=== PATIENT | female | born 1945 | race Caucasian/White ===

== ENCOUNTER 2018-06-19 09:23 | Emergency (ER) | payer MEDICARE, BC ==
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
[2018-06-19 09:53] LABS: ABS Basophils 0.1 10^3/ul (0-0.2); ABS Eosinophils 0.1 10^3/ul (0-0.6); ABS Lymphocytes 0.9 10^3/ul (1.0-4.8); ABS Monocytes 0.4 10^3/ul (0-0.8); ABS Neutrophils 3.5 10^3/ul (1.5-7.7); ABS Nucleated RBC 0 10^3/ul; Eosinophil % 1.2 %; Hematocrit 41 % (35-47); Hemoglobin 13.5 g/dl (12.0-16.0); Lymphocyte % 18.7 %; Mean Corpuscular HGB Conc 33 g/dl (31-36); Mean Corpuscular Hemoglobin 30 pg (27-31); Mean Corpuscular Volume 91 fL (80-97); Mean Platelet Volume 7.7 fL (7.4-10.4); Nucleated Red Blood Cells % 0; Platelet Count 234 10^3/ul (150-450); Red Blood Count 4.54 10^6/ul (4.00-5.40); Red Cell Distribution Width 14 % (10.5-15); White Blood Count 4.9 10^3/ul (3.5-10.8)
[2018-06-19 10:11] LABS: EGFR Non-African American 68.1 (>60)
[2018-06-19] MEDS ORDERED: Amoxicillin/Clavulanate TAB* 500 MG PO ONE (10:52)
[2018-06-19 11:36] LABS: Urine Appearance Cloudy; Urine Blood 1+ (Negative); Urine Color Yellow; Urine Ketones Negative (Negative); Urine Protein Negative (Negative); Urine Red Blood Cell Absent (Absent); Urine Specific Gravity 1.013 (1.010-1.030); Urine Urobilinogen Negative (Negative); Urine White Blood Cell Absent (Absent)
[2018-06-19 12:22] VITALS: BP 159/69
== END 2018-06-19 12:20 | disposition home or self-care (01) ==
LOC: ED 09:23
DX: S02.2XXA Fracture of nasal bones, initial encounter for closed fracture (principal); S00.93XA Contusion of unspecified part of head, initial encounter; W01.0XXA Fall on same level from slipping, tripping and stumbling without subsequent striking against object, initial encounter; M50.321 Other cervical disc degeneration at C4-C5 level; M50.322 Other cervical disc degeneration at C5-C6 level; M50.323 Other cervical disc degeneration at C6-C7 level; I25.10 Atherosclerotic heart disease of native coronary artery without angina pectoris; I10 Essential (primary) hypertension; E78.00 Pure hypercholesterolemia, unspecified; Z88.0 Allergy status to penicillin
CPT/HCPCS: 36415; 70450; 70486; 72125; 80053; 81003; 81015; 85025; 87086; 99284; A9270-GY

== ENCOUNTER 2018-11-19 08:25 | Day surgery (SDC) | payer MEDICARE, BC ==
[~2018-11-19 08:25] MED LIST: Acetaminophen TAB* 325 MG PO PRN; Buffered Lidocaine 1% SYRIN* 1 ML/SYRINGE INTRADERM ONE
[2018-11-19] MEDS ORDERED: Lidocaine 2% PF * 5 ML VIAL ONE (10:10)
[2018-11-19] MEDS ORDERED: Propofol* 10 MG/ML 20 ML BTL ONE (10:10)
[2018-11-19 10:26] VITALS: BP 134/56
--- NOTE | 2018-11-19 13:10 | OP ---
DATE OF OPERATION/DATE OF DICTATION: 11/19/2018 - [facility] DATE OF : 1945. SURGEON: Dr. Trevin Doss. PHARMACY BUYER: None. ANESTHESIA: Topical with intravenous sedation. PRE-OP DIAGNOSIS: Cataract, right eye. POST-OP DIAGNOSIS: Cataract, right eye. OPERATIVE PROCEDURE: Phacoemulsification and cataract extraction with posterior chamber intraocular lens implant, right eye. COMPLICATIONS: None. BLOOD LOSS: None. DESCRIPTION OF PROCEDURE: The patient was brought to the operating room and received a small amount of intravenous sedation. A drop of Tetracaine was placed in her right eye. She was prepped and draped in the usual sterile fashion for ophthalmic surgery and attention was directed to the right eye where a speculum was placed. A paracentesis was created at the 11 o'clock position and 0.1 cc of 1 percent preservative-free Lidocaine was injected into the anterior chamber followed by DisCoVisc. The eye was digitally stabilized while a 2.75 mm keratome was used to create a triplanar clear corneal incision at the 9 o'clock position. A continuous curvilinear capsulorrhexis was created with a cystotome and Utrata forceps. BSS on a cannula was used to hydrodissect the lens from the capsule. Phacoemulsification was performed in a divide-and- conquer technique to create four fragments which were removed. Residual cortical material was removed with irrigation and aspiration. DisCoVisc was used to inflate the capsular bag and an AUOOTO 27.0 diopter lens was folded and inserted into the capsular bag. DisCoVisc was removed using irrigation and aspiration. BSS on a cannula was used to hydrate the corneal stroma and seal the wound. At the end of the case the pupil was round and the lens was centered. The eye was of normal pressure and the wound was water tight. The speculum was removed and topical Maxitrol ointment was placed on the surface of the eye. The eye was closed, patched and shielded and the patient was sent to the recovery room in stable condition with post operative instructions and follow-up appointment given. [id number]/[facility] #: [id number] MTDD
[2018-11-19] MEDS ORDERED: Triamcinolone Acetonide* 40 MG/ML 1 ML VIAL ONE (13:59)
[2018-11-19] MEDS ORDERED: Atropine 1% OPHTH.SOL* 1 DROP BTL 2-5 ML ONE (13:59)
[2018-11-19] MEDS ORDERED: Acetylcholine 1:100 OPTH* OPHTH.SOLN ONE (13:59)
[2018-11-19] MEDS ORDERED: Bupivacaine 0.25% SDV PF* 10 ML VIAL INJ ONE (13:59)
[2018-11-19] MEDS ORDERED: Cyclopentolate 1% OPTH.SOL* 2 ML BTL ONE (14:00)
[2018-11-19] MEDS ORDERED: Phenylephrine OPHTH SOL 2.5%* 2 ML ONE (14:00)
[2018-11-19] MEDS ORDERED: Lidocaine 1%* 5 ML VIAL ONE (14:00)
[2018-11-19] MEDS ORDERED: Ketorolac 0.5% OPHTH (NF) 0.5 % 5 ML BTL ONE (14:00)
[2018-11-19] MEDS ORDERED: Tetracaine 0.5% OPTH.SOL 4 ML* 1 DROP BTL ONE (14:00)
[2018-11-19] MEDS ORDERED: Neomycin/Polymy/Dex OPHTH.OIN* 3.5 GM ONE (14:00)
[2018-11-19] MEDS ORDERED: Tropicamide 1% OPTH.SOL* BTL ONE (14:00)
== END 2018-11-19 10:33 | disposition home or self-care (01) ==
LOC: OREAST 08:25
PROVIDERS: ATTEND Ophthalmology
DX: H25.11 Age-related nuclear cataract, right eye (principal); I10 Essential (primary) hypertension; K21.9 Gastro-esophageal reflux disease without esophagitis; E78.00 Pure hypercholesterolemia, unspecified; M19.90 Unspecified osteoarthritis, unspecified site; G47.33 Obstructive sleep apnea (adult) (pediatric); G20 Parkinson's disease
CPT/HCPCS: A9270-GY; J2704; J3301; J3490; V2632

== ENCOUNTER 2018-11-26 07:50 | Day surgery (SDC) | payer MEDICARE, BC ==
[2018-11-26] MEDS ORDERED: Ketorolac 0.5% OPHTH (NF) 0.5 % 5 ML BTL ONE (08:01)
[2018-11-26] MEDS ORDERED: Phenylephrine OPHTH SOL 2.5%* 2 ML ONE (08:01)
[2018-11-26] MEDS ORDERED: Lidocaine 1%* 5 ML VIAL ONE (08:01)
[2018-11-26] MEDS ORDERED: Cyclopentolate 1% OPTH.SOL* 2 ML BTL ONE (08:01)
[2018-11-26] MEDS ORDERED: Tropicamide 1% OPTH.SOL* BTL ONE (08:01)
[2018-11-26] MEDS ORDERED: Tetracaine 0.5% OPTH.SOL 4 ML* 1 DROP BTL ONE (08:01)
[2018-11-26] MEDS ORDERED: Neomycin/Polymy/Dex OPHTH.OIN* 3.5 GM ONE (08:01)
[2018-11-26] MEDS ORDERED: Phenylephr/Ketorolac 1%/0.3% OPH DROP BTL ONE (08:03)
[2018-11-26] MEDS ORDERED: fentaNYL* 50 MCG/ML 2 ML VIAL (100 MCG VIAL) ONE (08:50)
[2018-11-26] MEDS ORDERED: Midazolam* 1 MG/ML 2 ML VIAL (2 MG) ONE (08:50)
[2018-11-26 09:45] VITALS: BP 119/52
--- NOTE | 2018-11-26 10:56 | OP ---
DATE OF OPERATION/DATE OF DICTATION: 11/26/2018 - [facility] DATE OF : 1945. SURGEON: Dr. Trevin Doss. LIVING SUPERVISOR: None. ANESTHESIA: Topical with intravenous sedation. PRE-OP DIAGNOSIS: Cataract, left eye. POST-OP DIAGNOSIS: Cataract, left eye. OPERATIVE PROCEDURE: Phacoemulsification and cataract extraction with posterior chamber intraocular lens implant, left eye. COMPLICATIONS: None. BLOOD LOSS: None. DESCRIPTION OF PROCEDURE: The patient was brought to the operating room and received a small amount of intravenous sedation. A drop of Tetracaine was placed in his left eye. He was prepped and draped in the usual sterile fashion for ophthalmic surgery and attention was directed to the left eye where a speculum was placed. A paracentesis was created at the 5 o'clock position and 0.1 cc of 1 percent preservative-free Lidocaine was injected into the anterior chamber followed by DisCoVisc. The eye was digitally stabilized while a 2.75 mm keratome was used to create a triplanar clear corneal incision at the 3 o' clock position. A continuous curvilinear capsulorrhexis was created with a cystotome and Utrata forceps. BSS on a cannula was used to hydrodissect the lens from the capsule. Phacoemulsification was performed in a divide-and- conquer technique to create four fragments which were removed. Residual cortical material was removed with irrigation and aspiration. DisCoVisc was used to inflate the capsular bag and an AUOOTO 26.0 diopter lens was folded and inserted into the capsular bag. DisCoVisc was removed using irrigation and aspiration. BSS on a cannula was used to hydrate the corneal stroma and seal the wound. At the end of the case the pupil was round and the lens was centered. The eye was of normal pressure and the wound was water tight. The speculum was removed and topical Maxitrol ointment was placed on the surface of the eye. The eye was closed, patched and shielded and the patient was sent to the recovery room in stable condition with post operative instructions and follow-up appointment given. [id number]/[facility] #: [id number] MTDD
== END 2018-11-26 10:08 | disposition home or self-care (01) ==
LOC: OREAST 07:50
PROVIDERS: ATTEND Ophthalmology
DX: H25.12 Age-related nuclear cataract, left eye (principal); I10 Essential (primary) hypertension; K21.9 Gastro-esophageal reflux disease without esophagitis; M19.90 Unspecified osteoarthritis, unspecified site; E78.00 Pure hypercholesterolemia, unspecified; G47.33 Obstructive sleep apnea (adult) (pediatric); E78.5 Hyperlipidemia, unspecified
CPT/HCPCS: A9270-GY; C9447; J2250; J3010; V2632

== ENCOUNTER 2019-04-17 10:15 | Day surgery (SDC) | payer MEDICARE, BC ==
[~2019-04-17 10:15] MED LIST changes: -Acetaminophen TAB* 325 MG PO PRN; +Lactated Ringers 1000 ML Bag* 1,000 ML IV SCH
[2019-04-17] MEDS ORDERED: Propofol* 10 MG/ML 20 ML BTL ONE (10:20)
[2019-04-17] MEDS ORDERED: Lidocaine 2% PF * 5 ML VIAL ONE (10:25)
[2019-04-17] MEDS ORDERED: Ondansetron INJ* 2 MG/ML VIAL ONE (10:25)
[2019-04-17] MEDS ORDERED: Dexamethasone IV* 4 MG/ML 1 ML (4 MG) ONE (11:05)
[2019-04-17] MEDS ORDERED: Famotidine IV* 10 MG/ML 2 ML (20 mg) ONE ×2 (11:06)
[2019-04-17] MEDS ORDERED: Bupivacaine 0.25% SDV* 30 ML ONE (11:09)
[2019-04-17] MEDS ORDERED: Naloxone* 0.4 MG/ML 1 ML VIAL IV PRN (12:05)
[2019-04-17] MEDS ORDERED: Ibuprofen TAB* 600 MG ONE (12:48)
[2019-04-17 12:58] VITALS: BP 120/62
--- NOTE | 2019-04-17 15:32 | OP ---
DATE OF OPERATION: 04/17/19 [facility] DATE OF : [birth year] SURGEON: John Quiroz MD TAPE MAKER: AMANDA Reveles ANESTHESIOLOGIST: Dr. Cabral. ANESTHESIA: General. PRE-OP DIAGNOSIS: Right carpal tunnel syndrome. POST-OP DIAGNOSIS: Right carpal tunnel syndrome. OPERATIVE PROCEDURE: Right endoscopic carpal tunnel release. INDICATIONS: Solange has pretty severe carpal tunnel. I talked to her about her options. She wanted to proceed with carpal tunnel release. We will have to wait to see how much recovery she has, but I think she will get substantial benefit. She understands there is risk associated with it. ESTIMATED BLOOD LOSS: 2 mL. COMPLICATIONS: None. FINDINGS: See above and below. DESCRIPTION OF PROCEDURE: Ms. Avalos was seen in the preoperative holding area. The correct site, side, and procedures were identified. We came back to the operating room. The arm was prepped and draped in the usual fashion and a time-out was performed. The arm was exsanguinated with the Esmarch and the tourniquet was inflated to 225 mmHg. I made a 1 cm transverse incision just proximal to the wrist flexion crease. Dissection was carried down through the subcutaneous tissue and palmar fascia. The distal antebrachial fascia was split transversely bluntly with the tenotomy scissors. A 2-prong skin hook was placed under the fascia. I used a synovial stripper and the dilators and a Q-tip to dilate and draw out the carpal tunnel. I then introduced the MicroAire endoscopic carpal tunnel system into the carpal tunnel. Once I had it in the appropriate location, I elevated the blade and the release was carried out from distal to proximal. Once I had confirmed the release distally, I used the tenotomy scissors to release the distal antebrachial fascia proximal. At this point, everything was looking very good. There is no compression on the nerve. The wound was irrigated out. The skin was closed with a 4-0 Prolene suture and Steri-Strips. Marcaine was infiltrated. A soft dressing was applied and she was taken to the recovery room in stable condition. [id number]/[facility] #: [id number] MTDD
== END 2019-04-17 13:16 | disposition home or self-care (01) ==
LOC: OREAST 10:15
PROVIDERS: ATTEND Orthopaedic Surgery Hand Surgery
DX: G56.01 Carpal tunnel syndrome, right upper limb (principal); G47.33 Obstructive sleep apnea (adult) (pediatric); I10 Essential (primary) hypertension; E78.5 Hyperlipidemia, unspecified; K21.9 Gastro-esophageal reflux disease without esophagitis; M19.90 Unspecified osteoarthritis, unspecified site; G20 Parkinson's disease; Z68.33 Body mass index [BMI] 33.0-33.9, adult
CPT/HCPCS: A9270-GY; J1100; J2405; J2704; J3490

== ENCOUNTER 2019-06-10 14:04 | Emergency (ER) | payer MEDICARE, BC ==
--- NOTE | 2019-06-10 14:23 | ED ---
Dizziness - HPI Summary HPI Summary: The patient is a 73 y/o F arriving by ambulance to [facility] with a chief complaint of worsening recurrent episodes of dizziness for the last few months. She reports that she began having dizzy spells months ago with about 1-2 occurring a week, but now she is having more frequent and constant episodes. She describes the dizziness as a drunk feeling, rather than a room-spinning sensation. There are no aggravating or alleviating factors to her symptoms. She went to her neurologist today, who manages her Parkinsons, and they noticed that the slurred speech she has at baseline is more severe than usual, but the patient states that her speech is normal to her. She denies fever or chills. She is not in any pain now. She uses a scooter walker for ambulation. PMHx: CAD , HLD, HTN, Parkinsons disease. Nonsmoker, rare EtOH, no substance use. Medications reviewed. Allergies noted. - History Of Current Complaint Stated Complaint: DIZZINESS PER EMS Hx Obtained From: Patient Onset/Duration: Still Present Timing: Constant Severity Initially: Mild Severity Currently: Moderate Character: Dizzy - "drunk feeling" Aggravating Factor(s): Nothing Alleviating Factor(s): Nothing Associated Signs And Symptoms: Negative: Fever, Chills, Slurred Speech - has at baseline but subjectively not worse than usual - Allergies/Home Medications Allergies/Adverse Reactions: Allergies Allergy/AdvReac Type Severity Reaction Status Date / Time hydrocodone Allergy Severe Hallucinati Verified 06/10/19 14:22 ons Penicillins Allergy Severe Hives Verified 06/10/19 14:22 rofecoxib AdvReac Severe Coughing Verified 06/10/19 14:22 Adhesive Tape AdvReac Intermediate Rash And Verified 06/10/19 14:22 Itching MORPHINE Allergy Severe Vomiting Uncoded 06/10/19 14:22 Home Medications: Home Medications Acetaminophen TAB* [Tylenol TAB*] 650 mg PO Q4H PRN 06/10/19 [History Confirmed 06/10/19] C,E,Zinc,Copper 11/Vvzqx4i/Lut [Ocuvite Adult 50 Plus Softgel] 1 each PO DAILY 06/10/19 [History Confirmed 06/10/19] Calcium Citrate 200 mg PO DAILY 06/10/19 [History Confirmed 06/10/19] Losartan/Hydrochlorothiazide [Losartan Potassium/Hydroc 50-12.5 mg] 1 tab PO DAILY 06/10/19 [History Confirmed 06/10/19] Magnesium Hydroxide LIQ* [Milk of Magnesia LIQ*] 30 ml PO DAILY PRN 06/10/19 [ History Confirmed 06/10/19] Melatonin (NF) 1 tab PO BEDTIME PRN 06/10/19 [History Confirmed 06/10/19] Polyvinyl Alcohol [Akwa Tears] 1 drop BOTH EYES DAILY PRN 06/10/19 [History Confirmed 06/10/19] Solifenacin(NF) [Vesicare(NF)] 5 mg PO DAILY 06/10/19 [History Confirmed ] PMH/Surg Hx/FS Hx/Imm Hx Endocrine/Hematology History: Denies: Hx Diabetes Cardiovascular History: Reports: Hx Coronary Artery Disease, Hx Hypercholesterolemia, Hx Hypertension - ON MEDICATION FOR, Hx Valvular Heart Disease - hardnening of valve related to age Denies: Hx Pacemaker/ICD, Other Cardiovascular Problems/Disorders Respiratory History: Reports: Hx Pneumonia - aspiration pneumonia, Hx Sleep Apnea - DX 2007, Other Respiratory Problems/Disorders - aspiration pneumonia post op, resp failure-2005 Denies: Hx Asthma GI History: Reports: Hx Gall Bladder Disease - gall stones, Hx Gastroesophageal Reflux Disease - HX OF-REPORTS HAS STARTED A MEDICATION PRIOR TO PAST SURGERY, Hx Hiatal Hernia Denies: Other GI Disorders History: Denies: Hx Renal Disease, Other Problems/Disorders Musculoskeletal History: Reports: Hx Arthritis, Hx Bursitis - BILATERAL HIPS IN THE PAST Denies: Other Musculoskeletal History Sensory History: Reports: Hx Cataracts - BILATERAL, Hx Contacts or Glasses - GLASSES Denies: Hx Hearing Aid Opthamlomology History: Reports: Hx Cataracts - BILATERAL, Hx Contacts or Glasses - GLASSES Neurological History: Reports: Hx Nerve Disease - DX 2014-PARKINSONS Denies: Other Neuro Impairments/Disorders Psychiatric History: Reports: Hx Anxiety - AFTER SURGERY 2006-[facility]- TREATED WITH BEHAVORIAL MOD WITH COUNSLER Denies: Hx Panic Disorder - Cancer History Hx Chemotherapy: No - Surgical History Surgical History: Yes Surgery Procedure, Year, and Place: 1987 [facility]- Le's neuroma,. 1991 [facility]- ( right) knee torn meniscus,. 2000 [facility]- (RIGHT) kneeARTHROSCOPY. , 2003 [facility] - (RIGHT) TKR,. 2006 [facility]- (LEFTt). BILATERAL CATARACTS. (left) TOTAL HIP , 2009 [facility]-. ANGIANOMA RIGHT FOOT,. ;RIGHT T TOTAL HIP 2011 [facility]. Laminectomy& Fusion of L4-5 February 27, 2013 at [facility] in [facility] . 2015, carpal tunel left [facility]. LEFT WRIST WITH HARDWARE-2017. LEFT SHOULDER REPLACEMENT Hx Anesthesia Reactions: Yes - MORPHINE-VOMITING Infectious Disease History: Denies: Traveled Outside the [place] in Last 30 Days - Family History Known Family History: Positive: Hypertension Negative: Blood Disorder - Social History Alcohol Use: Rare Alcohol Amount: 2 per month Hx Substance Use: No Substance Use Type: Reports: None Hx Tobacco Use: No Smoking Status (MU): Never Smoked Tobacco Have You Smoked in the Last Year: No Review of Systems Negative: Fever, Chills Neurological: Other - dizziness Negative: Headache, Weakness, Slurred Speech All Other Systems Reviewed And Are Negative: Yes Physical Exam - Summary Physical Exam Summary: VITAL SIGNS: Reviewed. GENERAL: Patient is a well-developed and nourished female who is lying comfortable in the stretcher. Patient is not in any acute respiratory distress. HEAD AND FACE: No signs of trauma. No ecchymosis, hematomas or skull depressions. No sinus tenderness. EYES: PERRLA, EOMI x 2, No injected conjunctiva, no nystagmus. No photophobia. EARS: Hearing grossly intact. Ear canals and tympanic membranes are within normal limits. MOUTH: Oropharynx within normal limits. NECK: Supple, trachea is midline, no adenopathy, no JVD, no carotid bruit, no c- spine tenderness, neck with full ROM. No meningeal signs, no Kernig's or brudzinskis signs. CHEST: Symmetric, no tenderness at palpation. LUNGS: Clear to auscultation bilaterally. No wheezing or crackles. CVS: Regular rate and rhythm, S1 and S2 present, no murmurs or gallops appreciated. ABDOMEN: Soft, non-tender. No signs of distention. No rebound, no guarding, and no masses palpated. Bowel sounds are normal. EXTREMITIES: FROM in all major joints, no edema, no cyanosis or clubbing. Left foot drop. NEURO: Alert and oriented x 3. No acute neurological deficits. Speech is slurred , but she states this is not worse than before. Follows commands. SKIN: Dry and warm. GCS: 15. Triage Information Reviewed: Yes Vital Signs Reviewed: Yes - Hector Coma Scale Best Eye Response: 4 - Spontaneous Best Motor Response: 6 - Obeys Commands Best Verbal Response: 5 - Oriented Coma Scale Total: 15 Procedures - Sedation Patient Received Moderate/Deep Sedation with Procedure: No Diagnostics - Laboratory Result Diagrams: 06/10/19 14:32 06/10/19 14:32 Lab Statement: Any lab studies that have been ordered have been reviewed, and results considered in the medical decision making process. - Radiology Chest X-Ray Radiology Interpretation Completed By: Radiologist Summary of Radiographic Findings: Impression: No evidence for acute intrathoracic disease. ED physician has reviewed this report. - EKG 1436 Cardiac Rate: NL - 63 BPM EKG Rhythm: Sinus Rhythm Summary of EKG Findings: EKG at 1436 reveals normal sinus rhyhm at 63 BPM. T- wave inversions in III. No ST elevations. ED physician has reviewed and interpreted this EKG. Dizzy Course/Dx - Course Assessment/Plan: This patient is a 72-year-old female who presents to the emergency department via ambulance with a chief complaint of having dizziness, slurred speech, weakness, and difficulty ambulating. Patient has a past medical history significant for Cataracts, Obstructive sleep apnea, Parkinsons disease , Insomnia, Idiopathic peripheral neuropathy. Blood work without any significant abnormality except for glucose of 103 and alkaline phosphatase of 126. Troponin is 0.00. Dr. Rea from neurology came and assessed the patient. After his assessment, he recommends to give IV fluids and for the patient to be discharged home with follow-up with Dr. Chaudhary. Patient declines IV fluids, however she drank approximately 500 cc of fluids and now she wants to be discharged home. The patient is hemodynamically stable alert and oriented 3. The patient doesnt have any acute neurological focal deficits. - Diagnoses Provider Diagnoses: Dizziness, Parkinsons disease - Provider Notifications Discussed Care Of Patient With: Caden Rea - neurology Time Discussed With Above Provider: 14:30 Instructed by Provider To: Other - I spoke with Dr. Rea concerning the patient s case, and he will come see her in the ED. At 1645, Dr. Rea is in the ED and has evaluated the patient. He states that she is safe to be discharged home , but we will hydrate first. Discharge ED - Sign-Out/Discharge Documenting (check all that apply): Patient Departure - Patient will be discharged home. - Discharge Plan Condition: Stable Disposition: HOME Patient Education Materials: Dizziness (ED), Parkinson Disease (ED) Referrals: Arabella Beltre MD [Primary Care Provider] - 3 Days Francis Chaudhary MD [Medical Doctor] - Additional Instructions: Follow up with your primary care provider in 2-3 days. Return to the emergency department for any new or worsening symptoms. - Billing Disposition and Condition Condition: STABLE Disposition: Home - Attestation Statements Document Initiated by Marianne: Yes Documenting Scribe: Chiquis Lorenz Provider For Whom Marianne is Documenting (Include Credential): Dr. Sonido Branch MD Scribe Attestation: Chiquis Garcia scribed for Dr. Sonido Branch MD on 06/10/19 at 1818. Scribe Documentation Reviewed: Yes Provider Attestation: The documentation as recorded by the Chiquis liz accurately reflects the service I personally performed and the decisions made by me, Dr. Sonido Branch MD Status of Scribe Document: Viewed
[2019-06-10 14:44] LABS: ABS Basophils 0.1 10^3/ul (0-0.2); ABS Eosinophils 0.1 10^3/ul (0-0.6); ABS Monocytes 0.4 10^3/ul (0-0.8); ABS Neutrophils 3.6 10^3/ul (1.5-7.7); Eosinophil % 1.3 %; Hematocrit 41 % (35-47); Hemoglobin 14.1 g/dL (12.0-16.0); Lymphocyte % 20.2 %; Mean Corpuscular HGB Conc 34 g/dL (31-36); Mean Corpuscular Hemoglobin 31 pg (27-31); Mean Corpuscular Volume 91 fL (80-97); Mean Platelet Volume 8.4 fL (7.4-10.4); Platelet Count 221 10^3/uL (150-450); Red Cell Distribution Width 14 % (10-15); White Blood Count 5.2 10^3/uL (3.5-10.8)
--- OUTSIDE RECORDS SUMMARY | 2019-06-10 14:54 | XMS REPORT | Continuity of Care Document ---
:1945 External Reference #:[id number] Author Name John Quiroz MD (transmitted by agent of provider Alvarado Call) Address [address] [place] [id number] Care Team Providers Name Role Phone Arabella Beltre MD - Internal Medicine Care Team Information Toe Puller Problems Active Problems Provider Date Obstructive sleep apnea of adult Mary Toney DNP, RN, MACHINE FEED OPERATOR-BC Onset: Poor sleep pattern Mary Toney DNP, RN, MACHINE FEED OPERATOR-BC Onset: 09/25/2014 Note: worry due to neurological disorder work up Idiopathic peripheral neuropathy Hemant Granados MD Onset: 01/28/2015 Secondary parkinsonism Hemant Granados MD Onset: 01/28/2015 Parkinson's disease Hemant Granados MD Onset: 03/10/2015 Closed fracture of distal end of radius John Quiroz MD Onset: 03/26/2017 Disorder of shoulder John Quiroz MD Onset: 06/29/2017 Localized, primary osteoarthritis of the John Quiroz MD Onset: 08/10/2017 shoulder region Insomnia Juan A Chaudhary M.D. Onset: 10/02/2017 Sleep apnea Juan A Chaudhary M.D. Onset: 10/02/2017 Other speech disturbances Juan A Chaudhary M.D. Onset: 06/28/2018 Skin sensation disturbance Juan A Chaudhary M.D. Onset: 12/30/2018 Neck pain Juan A Chaudhary M.D. Onset: 12/30/2018 Social History Type Date Description Comments Sex Unknown Tobacco Use Start: Unknown Never Smoked Cigarettes Tobacco Use Start: Unknown Secondhand smoke As a child, and as an adult. Not for years 12/10/18 Smoking Status Reviewed: 03/25/19 Secondhand smoke As a child, and as an adult. Not for years 12/10/18 ETOH Use Rarely consumes alcohol Tobacco Use Start: Unknown Patient has never smoked Recreational Drug Use Denies Drug Use Exercise Type/Frequency Exercises regularly Exercise Type/Frequency has not been able to lately d/t left foot Allergies, Adverse Reactions, Alerts Active Allergies Reaction Severity Comments Date Penicillin 08/11/2014 Adhesive Tape 09/25/2014 Morphine vomiting 07/03/2016 Vicodin 01/17/2019 Rofecoxib 01/17/2019 Medications Active Medications SIG Qnty Indications Ordering Provider Date Premarin insert 3/4 of an Hyacinth Ward, 04/11/2019 0.625mg/GM applicator full N.P. Cream into the vagina once weekly on Mondays Neomycin/Polymyxin/ instill 1 drops 3.500gm H00.015 Hyacinthcristian Ward, 2018 Dexamethasone into the N.P. conjunctival sac [id number] of the left eye 4 Ointment times a day x 2 weeks Melatonin 1 tab by mouth G47.00 Juan A Chaudhary, 03/14/2018 3mg every night at M.D. Capsules bedtime Sinemet CR 2 tabs- 4Am, 3 1080tabs G20 Juan A Chaudhary, 07/24/2017 25-100mg tabs -7Am, 2 M.D. Tablets ER tabs- 10 Am, 3 tabs- 3 PM, 2 tabs- 10 PM, (total of 12 tabs a day) Vesicare Take 5mg po daily 30tabs John [place], 04/25/2017 5mg QHS M.D. Tablets Azilect 1 by mouth every 90tabs S52.502A Juan A Jet, 12/31/2015 1mg Tablets day M.D. Sodium Chloride 1 gtts bid Unknown (Hypertonic) 5% Solution Acetaminophen 2 tabs by mouth Hyacinth Ward, 325mg every 4 hours (max N.P. Tablets 3000mg qd) Acetaminophen 1 tab po q 2 am Unknown 500mg Tablets Calcium 600+D High 1 by mouth qd Unknown Potency [id number] Tablets Celebrex take one Unknown 200mg capsule/tablet Capsules daily by mouth as needed for pain, avoid ibuprofen and other nsaids Saline Mist [place] 1 stray in each Unknown nares prn 0.65% Solution False Tears prn Unknown Ocuvite 1 by mouth every Unknown Tablets day Simvastatin 1 by mouth every Unknown 20mg day Tablets Losartan 1 by mouth every Unknown Potassium/Hydrochlo day rothiazide 50-12.5mg Tablets Amlodipine Besylate 1 by mouth every Unknown day 5mg Tablets Immunizations CPT Code Status Date Vaccine Lot # [id number] Given 04/20/2016 Fluzone Vaccine [id number] Given 07/03/2015 Pneumonia Vaccine Vital Signs Date Vital Result Comment 04/11/2019 9:57am Weight 201.38 lb Heart Rate 80 /min BP Systolic Sitting 118 mmHg BP Diastolic Sitting 72 mmHg Respiratory Rate 18 /min Body Temperature 97.0 F O2 % BldC Oximetry 96 % 03/25/2019 1:56pm Height 65.5 inches 5'5.50" Weight 199.00 lb Heart Rate 88 /min BP Systolic 138 mmHg BP Diastolic 60 mmHg Respiratory Rate 18 /min Pain Level 0 BMI (Body Mass Index) 32.6 kg/m2 Results Description No Information Available Procedures Description No Information Available Medical Devices Description No Information Available Encounters Type Date Location Provider Dx Diagnosis Office Visit 03/25/2019 [facility] John Quiroz MD G56.01 Carpal tunnel 1:45p at [place] syndrome, right upper limb Office Visit 03/19/2019 [facility] Obdulia Ward, M25.552 Pain in left hip 8:37a Home N.P. Office Visit 02/14/2019 [facility] Carisa Luna Parkinson' s 3:00p [facility] [place] disease Office Visit 02/11/2019 [facility] Krystal Chaudhary G2Malorie Parkinson' s 12:00p [facility] [place] disease M54.2 Cervicalgia Office Visit 01/17/2019 [facility] Obdulia Ward, H00.015 Hordeolum 9:00a Home N.P. externum left lower eyelid Office Visit 12/30/2018 [facility] Carisa Greene Parkinson's 10:00a [facility] [place] disease [facility] G47.33 Obstructive sleep apnea (adult) (pediatric) R47.89 Other speech disturbances R20.2 Paresthesia of skin M54.2 Cervicalgia Office Visit 12/10/2018 [facility] M19.072 Primary 9:45a [facility] osteoarthritis, left [place] ankle and foot G20 Parkinson's disease Office Visit 12/10/2018 [facility] G47.33 Obstructive sleep 2:15p [facility] Toney, RN, apnea (adult) Flexographic Press Set Up Operator MACHINE FEED OPERATOR-BC (pediatric) Office Visit 11/05/2018 [facility] Bartolo, M19.072 Primary 11:00a [facility] [place] osteoarthritis, [place] left ankle and foot Office Visit 10/29/2018 [facility] Hyacinthcristian Ward, M19.072 Primary 9:28a Home N.P. osteoarthritis, left ankle and foot Assessments Date Code Description Provider 04/11/2019 G56.01 Carpal tunnel syndrome, right Hyacinth Ward, N.P. upper limb 04/11/2019 M25.552 Pain in left hip Hyacinth Ward, N.P. 04/11/2019 G20 Parkinson's disease Hyacinth Ward, N.P. 04/11/2019 G47.33 Obstructive sleep apnea (adult) Hyacinth Ward, N.P. (pediatric) 04/11/2019 H61.23 Impacted cerumen, bilateral Hyacinth Ward, N.P. 03/25/2019 G56.01 Carpal tunnel syndrome, right John Quiroz MD upper limb 03/19/2019 M25.552 Pain in left hip Hyacinth Ward, N.P. 02/14/2019 G20 Parkinson's disease Juan A Chaudhary M.D. 02/11/2019 G20 Parkinson's disease Juan A Chaudhary M.D. 02/11/2019 M54.2 Cervicalgia Juan A Chaudhary M.D. 01/17/2019 H00.015 [place] externum left lower Hyacinth Ward, N.P. eyelid 12/30/2018 G20 Parkinson's disease Juan A Chaudhary M.D. 12/30/2018 G47.33 Obstructive sleep apnea (adult) Juan A Chaudhary M.D. (pediatric) 12/30/2018 R47.89 Other speech disturbances Juan A Chaudhary M.D. 12/30/2018 R20.2 Paresthesia of skin Juan A Chaudhary M.D. 12/30/2018 M54.2 Cervicalgia Juan A Chaudhary M.D. 12/10/2018 G47.33 Obstructive sleep apnea (adult) Mary Toney DNP, RN, MACHINE FEED OPERATOR-BC (pediatric) 12/10/2018 M19.072 Primary osteoarthritis, left ankle John Mcfarland M.D. and foot 12/10/2018 G20 Parkinson's disease John Mcfarland M.D. 11/05/2018 M19.072 Primary osteoarthritis, left ankle John [place] M.D. and foot 10/29/2018 M19.072 Primary osteoarthritis, left ankle Hyacinth Ward, N.P. and foot Plan of Treatment Future Appointment(s):04/17/2019 12:00 pm - John Quiroz MD at [facility] at [place]4/30/2019 11:00 am - John Quiroz MD at [facility] at [place]1912/16/2019 2:15 pm - Mary Toney DNP, RN, MACHINE FEED OPERATOR-BC at [facility]03/25/2019 - Jhon Quiroz MDG56.01 Carpal tunnel syndrome, right upper limbFollow up:Follow up: 10-14 days postop Functional Status Functional Condition Comment Date Status Rolling walker is used to ambulate Active Brace, left foot/leg Active Mental Status Description No Information Available Referrals Description No Information Available
--- OUTSIDE RECORDS SUMMARY | 2019-06-10 14:54 | XMS REPORT | Summary of Care ---
:1945 Author Organization [facility] Address [address] [address] Care Team Providers Name Role Phone Arabella Beltre Primary Care Provider Reason for Visit Reason Comments Follow Up Solange is here today for her yearly follow up s/p LTSA on 03/19/18. Encounter Details Date Type Department Care Team Description 05/14/2019 Office Visit [facility] - Caden Guevara MD S/P shoulder [place] [address] replacement, left [address] [facility] [address] [place] [address] (Primary Dx) [address] [phone] [place] [address] [phone] Allergies Active Allergy Reactions Severity Noted Date Comments Tape: Silk Or Dermatologic Reaction 11/27/2007 Adhesive Morphine GI Reaction 03/19/2018 Penicillins Hives 08/15/2005 Rofecoxib GI Reaction 08/15/2005 Hydrocodone-Acetamino ROOFING APPLICATOR Reaction 04/07/2015 Hallucinations, phen constipation documented as of this encounter (statuses as of 05/14/2019) Medications Medication Sig Dispensed Refills Start Date End Date Status carbidopa-levodopa Take 1 Tab by 0 Active (SINEMET) 25-100 MG mouth DAILY. At Oral Tab 0645 Multiple Take by mouth. 0 Active Vitamins-Minerals (OCUVITE ADULT 50+ PO) Calcium-D (CALCIUM Take by mouth 0 Active 600+D HIGH POTENCY) DAILY. 600-400 MG-UNIT Oral Tab Rasagiline Mesylate Take by mouth 0 Active (AZILECT) 1 MG Oral DAILY. Tab Saline 0.65 % (Soln) [place] in nose 0 Active Nasal Solution NEEDED. Hypromellose Place to the 0 Active (ARTIFICIAL TEARS OP) external eye NEEDED. Risedronate Sodium 150 Take 1 Tab by 3 Tab 3 02/04/2018 Active MG Oral mouth EVERY THIRTY TabIndications: DAYS. Osteoporosis, unspecified osteoporosis type, unspecified pathological fracture presence Additional information Patient taking differently: 150 mg Oral [id number], Pt has not started it yet., Reported on 03/08/2018 10:04 AM Melatonin 3 MG Oral Cap Take by mouth. 0 03/17/2018 Active carbidopa-levodopa (SINEMET Take 2 Tabs by mouth FOUR 240 Tab 5 04/09/2018 Active CR) 25-100 MG Oral Tab CR TIMES DAILY. At 0500, 1000, 1600, 2300 Additional information Patient taking differently: 2 Tab Oral QID, At 0400, 0700, (1000 AM taking 3 tabs), 1600, and 2200 takes taking 2 tab, Reported on 08/07/2018 1:50 PM acetaminophen (TYLENOL) 325 MG Take 2 Tabs by mouth 120 Tab 0 04/29/2018 Active Oral Tab EVERY FOUR HOURS NEEDED for Pain. Pt states she takes 2 500 mg daily and 2 325 mg tabs daily amLodipine (NORVASC) 5 MG Oral Take 1 Tab by mouth 90 Tab 3 08/07/2018 Active TabIndications: Essential DAILY. hypertension celeCOXIB (CELEBREX) 200 MG Oral Take 1 Cap by mouth 90 Cap 3 08/07/2018 Active Cap DAILY. Solifenacin Succinate (VESICARE) Take 1 Tab by mouth 90 Tab 3 08/07/2018 Active 5 MG Oral Tab DAILY. Losartan-Hydrochlorothiazide Take 1 Tab by mouth 90 Tab 3 08/07/2018 Active 50-12.5 MG Oral TabIndications: DAILY. Essential hypertension estrogens, conjugated (PREMARIN) Place 0.75 Applicators 42.5 g 3 2018 Active 0.625 MG/GM Vaginal into the vagina EVERY CreamIndications: Hormone 7 DAYS. replacement therapy atorvastatin (LIPITOR) 20 MG Take 1 Tab by mouth 90 Tab 3 09/25/2018 Active Oral TabIndications: Pure DAILY. hypercholesterolemia SODIUM CHLORIDE, HYPERTONIC, OP Place 0.5 % to the 0 Active external eye TWICE DAILY. simvastatin (ZOCOR) 20 MG Oral Take 1 Tab by mouth 30 Tab 11 05/07/2019 Active Tab EVERY BEDTIME. documented as of this encounter (statuses as of 05/14/2019) Active Problems Problem Noted Date Diastolic dysfunction 03/08/2018 Arthritis of left shoulder region 12/13/2017 Overview: Added automatically from request for surgery [id number] Left shoulder pain 11/28/2017 Trochanteric bursitis of left hip 07/27/2017 Osteoporosis 07/25/2017 Overview: Start fosamax 08/02 after fracture wrist - Parkinson's disease 06/28/2015 History of total bilateral knee replacement 06/25/2015 Spinal stenosis 12/11/2012 Overview: Spinal surgery at [facility] L4-[address]aminectomy with fusion 0 Dr Clinton Foot drop and pain better BAKARI (obstructive sleep apnea) 11/21/2012 Overview: [facility] sleep lab 11/08/12, moderate to severer obstructive hypopneas Bursitis, hip 10/10/2012 BMI 33.0-33.9,adult 05/03/2012 Overview: This patient's BMI has been calculated and is above average, and BMI management plan is completed. General patient education discussion including: obesity-related excess mortality History of total hip arthroplasty RTHA 12/25/11 01/11/2012 Gall bladder stones 11/12/2007 Fatty liver 11/12/2007 Urinary incontinence 10/07/2007 Essential hypertension 09/20/2007 Hypercholesterolemia 09/20/2007 GERD (gastroesophageal reflux disease) 09/20/2007 Uterine fibroid 09/20/2007 documented as of this encounter (statuses as of 05/14/2019) Immunizations Name Administration Dates Next Due Depo Medrol (80mg) 09/05/2012 H1N1 Injectable Adult 07/20/2009 Influenza (IM) Preservative Free 04/18/2013, 03/29/2011 Influenza Vaccine High Dose 04/25/2017, 05/03/2016, 06/04/2015, 05/04/2014 Influenza Vaccine Whole 05/06/2009, 05/01/2008 Influenza Virus Vaccine - Whole 05/09/2006 Influenza Virus Vaccine Pres Free 6-35 04/04/2012, 04/27/2010 Months PNEUMOCOCCAL POLYSACCHARIDE VACCINE 05/03/2012 Pneumococcal Conjugate(13 Valent) 06/28/2015 TDAP Vaccine 06/28/2015 TETANUS & DIPHTHERIA TOXOID (OVER 7 10/02/2005 YRS) ZOSTER (ZOSTAVAX) VACCINE 05/31/2007 documented as of this encounter Social History Tobacco Use Types Packs/Day Years Used Date Never Smoker Smokeless Tobacco: Never Used Tobacco Cessation: Counseling Given: No Alcohol Use Drinks/Week oz/Week Comments Yes 1 Glasses of wine 1.0 occasional monthly Sex Assigned at Date Recorded Not on file Job Start Date Occupation Industry Not on file Not on file Not on file Travel History Travel Start Travel End No recent travel history available. documented as of this encounter Last Filed Vital Signs Vital Sign Reading Time Taken Comments Blood Pressure 124/65 05/14/2019 12:41 PM EDT Pulse 80 05/14/2019 12:41 PM EDT Temperature - - Respiratory Rate - - Oxygen Saturation - - Inhaled Oxygen Concentration - - Weight 90.7 kg (200 lb) 05/14/2019 12:41 PM EDT Height 165.1 cm (5' 5") 05/14/2019 12:41 PM EDT Body Mass Index 33.28 05/14/2019 12:41 PM EDT documented in this encounter Progress Notes Caden Guevara MD - 05/14/2019 12:15 PM EDT PATIENT: Solange Avalos : 1945 DATE OF SERVICE: 05/14/2019 REFERRING PRACTITIONER: Kade Scruggs PRIMARY CARE PROVIDER: Arabella Beltre CHIEF COMPLAINT: Chief Complaint Patient presents with Follow Up Solange is here today for her yearly follow up s/p LTSA on 03/19/18. HISTORY OF PRESENT ILLNESS: Solange Avalos is a 73-y.o. female who returns for a follow up for left total shoulder arthroplasty. PHYSICAL EXAM: Shoulder Exam General Skin: Intact Muscle Bulk: no gross atrophy noted Crepitus: minimal Neurovascular Sensation: axillary/median/ulnar/radial nerve Sensate to light touch Strength: biceps, triceps, wrist extension, wrist flexion, interossei 5/5 Vascular: Good pulse C-spine: Negative Range of motion Forward elevation: 150 Internal rotation: L5 External rotation: 30 Rotation 90 abduction: 0-90 Subscapularis Belly Press: negative Lift Off: negative Supraspinatus Supraspinatus strength testin/5 Infraspinatus/Teres Minor External rotation strength: 4/5 Hornblower: negative IMPRESSION: ICD-9-CM ICD-10-CM 1. S/P shoulder replacement, left V43.61 Z96.612 PLAN: Patient is 1 year(s) from a left anatomic total shoulder arthroplasty. Doing well. Continue exercises, and non-steroidal anti inflammatory drugs for discomfort. Follow up in 1 year with repeat x-rays-true AP, and axillary views. X-rays today look good. Of course, call sooner with any other concerns. Author: Caden Guevara MD 05/14/2019 14:19 documented in this encounter Plan of Treatment Date Type Specialty Care Team Description 08/15/2019 Office Visit Internal Medicine Arabella Beltre MD [address] [place] [address] [phone] Name Type Priority Associated Diagnoses Date/Time XR SHOULDER MIN 2 Imaging Routine Arthritis of left 05/14/2019 11:53 AM VIEWS LEFT (STANDARD) shoulder region EDT Name Type Priority Associated Diagnoses Order Schedule XR SHOULDER MIN 2 VIEWS Imaging Routine Expected: 05/13/2019, LEFT (STANDARD) Expires: 05/13/2020 Health Maintenance Due Date Last Done Comments HIV SCREENING 1960 ZOSTER IMMUNIZATION SERIES 07/26/2007 05/31/2007 (2 of 3) FALL RISK ASSESSMENT 2008 MEDICARE ANNUAL WELLNESS 07/04/2017 07/04/2016, 06/28/2015, VISIT 06/26/2014, Additional history exists INFLUENZA VACCINE (#1) 2019 04/25/2017, 05/03/2016, 06/04/2015, Additional history exists MAMMOGRAM (SCREENING) 08/13/2019 08/13/2018, 12/26/2016, 12/21/2015, Additional history exists DEPRESSION SCREENING 02/13/2020 02/12/2019 LIPID DISORDER SCREENING 05/07/2020 05/07/2019, 04/23/2017, 06/19/2014, Additional history exists COLONOSCOPY SCREENING 08/17/2021 08/17/2016, 03/28/2016 OSTEOPOROSIS SCREENING 11/09/2021 11/10/2011 PNEUMOCOCCAL 65+YRS Completed 06/28/2015, 05/03/2012 HPV IMMUNIZATION SERIES Aged Out No longer eligible based on patient's age to complete this topic MENINGOCOCCAL VACCINE IMM Aged Out No longer eligible based on patient's age to complete this topic documented as of this encounter Goals Goal Patient Goal Associated Recent Patient-Stated? Author Type Problems Progress Blood Pressure Blood Pressure 124/65 No Alexsander, < 150/90 (05/14/2019 MD Arabella 12:41 PM EDT) Note: This is an individualized treatment (blood pressure) goal for Solange Avalos: Displayed above (on the left) is your goal for blood pressure control. Your most recent blood pressure is also shown above, on the right. You should try to achieve blood pressures that are lower than your goal listed above (on the left). Weight loss vs. 18 mo max Lifestyle 8 (05/14/2019 12:41 PM EDT) No Arabella Beltre MD (lbs) >= 10 Note: This is an individualized lifestyle goal for Solange Avalos: Your body mass index (BMI) is more than 30. You should lose weight. A reasonable starting goal is to lose 10 pounds. Displayed above is how many pounds you have lost thus far towards your 10 pound weight loss goal. Take all prescribed medications as directed Self-management No Arabella Beltre MD Note: This is an individualized self-management goal for Solange Doran Avalos: Please take all prescribed medications as directed. 1. Do not skip doses. If you cannot afford your medications, talk with your doctor. 2. Use a pill reminder system such as a pill box if needed. Your pharmacist can help you with this. 3. Contact your Pharmacy 5 days before your medication runs out. If you cannot take your medications for any reasons, talk with your doctor. 4. Please bring all of your medication bottles and inhalers (or a list of all your medications/inhalers) with you to every visit. Potential barriers to meeting all of your care plan goals will continue to be addressed on an ongoing basis. documented as of this encounter Implants Implanted Type Area Tube Rebuilder Device Shelf Model / Identifier Expiration Serial / Lot Date [place] Gription Acetabular Shell 54mm Od Right: Hip DEPUY 12/04/2021 [id number] / Implanted: Qty: 1 on 12/25/2011 at [facility] / [id number] [place] Cancellous Bone Screw Right: Hip DEPUY 12/26/2019 1217-35-500 / Implanted: Qty: 1 on 12/25/2011 at [facility] / [id number] [place] Hole Eliminator Right: Hip DEPUY 12/25/2021 1246-03-000 / Implanted: Qty: 1 on 12/25/2011 at [facility] / [id number] [place] Cancellous Bone Screw Right: Hip DEPUY 11/24/2021 1217-15-500 / Implanted: Qty: 1 on 12/25/2011 at [facility] / [id number] An[employer]omic Adaptors 2mm Long - [id number] Left: GAMEZ 12/14/2019 1331.15.272 / Implanted: Qty: 1 on 03/19/2018 by Caden Guevara MD at [facility] / [id number] Hybrid Small Baseplate Glenoid Left: GAMEZ 10/13/2022 1379.59.110 / Implanted: Qty: 1 on 03/19/2018 by Caden Guevara MD at [facility] / [id number] Bone Cement, 40gm Full Dose - [id number] Left: DEPUY 05/15/2019 [id number] / Implanted: Qty: 1 on 03/19/2018 by Caden Guevara MD at [facility] Shoulder / [id number] Cementless Finned Stems 16mm - [id number] Left: GAMEZ 02/12/2023 1304.15.160 / Implanted: Qty: 1 on 03/19/2018 by Caden Guevara MD at [facility] / [id number] Finned Humeral Body Anatomic - [id number] Left: GAMEZ 02/12/2023 1350.15.110 / Implanted: Qty: 1 on 03/19/2018 by Caden Guevara MD at [facility] / [id number] Humeral Heads 46mm - [id number] Left: GAMEZ 12/13/2022 1322.09.460 / Implanted: Qty: 1 on 03/19/2018 by Caden Guevara MD at [facility] / [id number] documented as of this encounter Results Not on filedocumented in this encounter Visit Diagnoses Diagnosis S/P shoulder replacement, left - Primary documented in this encounter Guarantor Name Account Type Relation to Date of Phone Billing Patient Address Solange Avalos Personal/Family 1945 [phone] [address] (Home) [place] [phone] [place], [place] (Work) [address] documented as of this encounter Advance Directives Type Date Recorded 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
--- OUTSIDE RECORDS SUMMARY | 2019-06-10 14:55 | XMS REPORT | Summary of Care ---
:1945 Author Organization [facility] Address [address] [address] Care Team Providers Name Role Phone Arabella Beltre Primary Care Provider Reason for Visit Reason Comments Pre-Op Exam carpal tunnel surgery right wrist 04/[address] Garcia with [facility]. Encounter Details Date Type Department Care Team Description 04/15/2019 Office Visit [place] [facility] Arabella Beltre MD Preop examination (Primary Dx); Medicine [facility] Parkinson's disease (HCC); [address] [place] [address] Diastolic dysfunction; [place] [address] Essential hypertension; [phone] BAKARI (obstructive sleep apnea) Allergies Active Allergy Reactions Severity Noted Date Comments Tape: Silk Or Dermatologic Reaction 11/27/2007 Adhesive Morphine GI Reaction 03/19/2018 Penicillins Hives 08/15/2005 Rofecoxib GI Reaction 08/15/2005 Hydrocodone-Acetamino POMOLOGY TEACHER Reaction 04/07/2015 Hallucinations, phen constipation documented as of this encounter (statuses as of 04/15/2019) Medications Medication Sig Dispensed Refills Start Date [...] Oral DAILY. Tab Saline 0.65 % (Soln) [place] in nose 0 Active Nasal Solution NEEDED. Hypromellose Place to the 0 Active (ARTIFICIAL TEARS OP) external eye NEEDED. Risedronate Sodium 150 Take 1 Tab by 3 Tab 3 02/04/2018 Active MG Oral mouth EVERY THIRTY TabIndications: DAYS. Osteoporosis, unspecified osteoporosis type, unspecified pathological fracture presence Additional information Patient taking differently: 150 mg Oral [id number], Pt has not started it yet., Reported [...] 0.625 MG/GM Vaginal into the vagina EVERY 7 CreamIndications: Hormone DAYS. replacement therapy atorvastatin (LIPITOR) 20 MG Take 1 Tab by mouth 90 Tab 3 09/25/2018 Active Oral TabIndications: Pure DAILY. hypercholesterolemia SODIUM CHLORIDE, HYPERTONIC, OP Place 0.5 % to the 0 Active external eye TWICE DAILY. documented as of this encounter (statuses as of 04/15/2019) Active Problems Problem Noted Date Diastolic dysfunction 03/08/2018 Arthritis of left shoulder region 12/13/2017 Overview: Added automatically from request for surgery [id number] Left shoulder pain 11/28/2017 Trochanteric bursitis of left hip 07/27/2017 Osteoporosis 07/25/2017 Overview: Start fosamax 08/02 after fracture wrist - Parkinson's disease 06/28/2015 History of total bilateral knee replacement 06/25/2015 Spinal stenosis 12/11/2012 Overview: Spinal surgery at [place] L4-5 laminectomy with fusion 0 Dr Clinton Foot drop and pain better BAKARI (obstructive sleep apnea) 11/21/2012 Overview: [facility] sleep lab 11/08/12, moderate to severer obstructive [...] as of this encounter (statuses as of 04/15/2019) Immunizations Name Administration Dates Next Due Depo [...] Date Never Smoker Smokeless Tobacco: Never Used Alcohol Use Drinks/Week oz/Week Comments Yes 1 Glasses of wine 1.0 occasional monthly Sex Assigned at Date Recorded Not on file Job Start Date Occupation Industry Not on file Not on file Not on file Travel History Travel Start Travel End No recent travel history available. documented as of this encounter Last Filed Vital Signs Vital Sign Reading Time Taken Comments Blood Pressure 120/68 04/15/2019 6:09 PM EDT Pulse 71 04/15/2019 6:09 PM EDT Temperature - - Respiratory Rate 20 04/15/2019 6:09 PM EDT Oxygen Saturation 94% 04/15/2019 6:09 PM EDT Inhaled Oxygen Concentration - - Weight 90.9 kg (200 lb 6.4 oz) 04/15/2019 6:09 PM EDT Height 165.1 cm (5' 5") 04/15/2019 6:09 PM EDT Body Mass Index 33.35 04/15/2019 6:09 PM EDT documented in this encounter Patient Instructions Patient InstructionsCreArabella morton MD - 04/15/2019 6:00 PM EDTPlan Patient is a good candidate for planned surgery- no further testing or change in medicinal regimen necessary Though she has been told to hold on celebrex for a few days before surgery She should take her blood pressure medication with a sip the morning before surgery and should take her parkinsons medication as is her usual routine as possible around the procedure - documented in this encounter Progress Notes Arabella Beltre MD - 04/15/2019 6:00 PM EDT NAME:Solange Avalos [birth year] ENC Date: 04/15/2019 CC: Chief Complaint Patient presents with Pre-Op Exam carpal tunnel surgery right wrist 04/[address] Garcia with [facility]. Solange Avalos is a 73-y.o. female preop evualuation for carpal tunnel surgery with Dr Garcia- At [facility] Patient has a history of grade 2 diastolic dysfunction ( echo results 04/30 ) and HTN - but has nothad any history of ischemic cardiac disease or pulmonary diagnosis except for obsructive sleep apnea She denies and chest pressure / shortness of breath / cough / faint / palpiations - Patient does have a history of parkinsons disease and is [facility] ( Dr Chaudhary ) for this - Takes sinemet 25/ 100- (3) in the AM - (2) 10 am - ( 3) at 3PM 2 at 10 pm Patient has not had any problems with clotting / bleeding and no problems with anesthesia - She has had bilateral knee surgery in 2014 without problem Current Outpatient Medications Medication Sig acetaminophen (TYLENOL) 325 MG Oral Tab Take 2 Tabs by mouth EVERY FOUR HOURS NEEDED for Pain. Pt states she takes 2 500 mg daily and 2 325 mg tabs daily amLodipine (NORVASC) 5 MG Oral Tab Take 1 Tab by mouth DAILY. atorvastatin (LIPITOR) 20 MG Oral Tab Take 1 Tab by mouth DAILY. Calcium-D (CALCIUM 600+D HIGH POTENCY) 600-400 MG-UNIT Oral Tab Take by mouth DAILY. carbidopa-levodopa (SINEMET CR) 25-100 MG Oral Tab CR Take 2 Tabs by mouth FOUR TIMES DAILY. At 0500, 1000, 1600, 2300 (Patient taking differently: Take 2 Tabs by mouth FOUR TIMES DAILY. At 0400, 0700, (1000 AM taking 3 tabs), 1600, and 2200 takes taking 2 tab) carbidopa-levodopa (SINEMET) 25-100 MG Oral Tab Take 1 Tab by mouth DAILY. At 0645 celeCOXIB (CELEBREX) 200 MG Oral Cap Take 1 Cap by mouth DAILY. estrogens, conjugated (PREMARIN) 0.625 MG/GM Vaginal Cream Place 0.75 Applicators into the vagina EVERY 7 DAYS. Hypromellose (ARTIFICIAL TEARS OP) Place to the external eye NEEDED. Losartan-Hydrochlorothiazide 50-12.5 MG Oral Tab Take 1 Tab by mouth DAILY. Melatonin 3 MG Oral Cap Take by mouth. Multiple Vitamins-Minerals (OCUVITE ADULT 50+ PO) Take by mouth. Rasagiline Mesylate (AZILECT) 1 MG Oral Tab Take by mouth DAILY. Risedronate Sodium 150 MG Oral Tab Take 1 Tab by mouth EVERY THIRTY DAYS. (Patient taking differently: Take 150 mg by mouth EVERY THIRTY DAYS. Pt has not started it yet.) Saline 0.65 % (Soln) Nasal Solution [place] in nose NEEDED. SODIUM CHLORIDE, HYPERTONIC, OP Place 0.5 % to the external eye TWICE DAILY. Solifenacin Succinate (VESICARE) 5 MG Oral Tab Take 1 Tab by mouth DAILY. No current facility-administered medications for this visit. Patient Active Problem List Diagnosis Date Noted Diastolic dysfunction 03/08/2018 Arthritis of left shoulder region 12/13/2017 Added automatically from request for surgery [id number] Left shoulder pain 11/28/2017 Trochanteric bursitis of left hip 07/27/2017 Osteoporosis 07/25/2017 Start fosamax 08/02 after fracture wrist - Parkinson's disease (HCC) 06/28/2015 History of total bilateral knee replacement 06/25/2015 Spinal stenosis 12/11/2012 Spinal surgery at [place] L4-5 laminectomy with fusion 0 Dr Clinton Foot drop and pain better BAKARI (obstructive sleep apnea) 11/21/2012 [facility] sleep lab 11/08/12, moderate to severer obstructive hypopneas Bursitis, hip 10/10/2012 BMI 33.0-33.9,adult 05/03/2012 This patient's BMI has been calculated and is above average, and BMI management plan is completed. General patient education discussion including: obesity-related excess mortality History of total hip arthroplasty RTHA 12/25/11 01/11/2012 Gall bladder stones 11/12/2007 Fatty liver 11/12/2007 Urinary incontinence 10/07/2007 Essential hypertension 09/20/2007 Hypercholesterolemia 09/20/2007 GERD (gastroesophageal reflux disease) 09/20/2007 Uterine fibroid 09/20/2007 Family History Problem Relation Age of Onset Hypertension Mother Heart Mother arrhythmia - Family Hx Diabetes Father Also family hx Heart Father Anesth Problems No family history Arthritis No family history Cancer No family history Clotting Disorder No family history Heart Disease No family history Kidney Disease No family history Thyroid Disease No family history No cardiopulmonary symptoms No upper or lower GI complaints No urinary tract symptoms. No bruising/ bleeding. No neurological complaints . No insomnia.+ . Social History Tobacco Use Smoking status: Never Smoker Smokeless tobacco: Never Used Substance Use Topics Alcohol use: Yes Alcohol/week: 1.0 standard drinks Types: 1 Glasses of wine per week Comment: occasional monthly Drug use: No OBJECTIVE: BP 120/68 (BP Location: Right arm, Patient Position: Sitting) | Pulse 71 | Resp 20 | Ht 5' 5" (1.651 m) | Wt 200 lb 6.4 oz (90.9 kg) | SpO2 94% | BMI 33.35 kg/m . Heent neg Lungs Clear CV rrr Abd soft, nontender, no organomegaly Ext 1+ edema right AFO- on the left for foot drop Neuro: intellect intact- hypomimia ; motor with walker EKG - NSR , poor R wave progression - unchanged from 2017 and 2012 A/P ICD-9-CM ICD-10-CM 1. Preop examination V72.84 Z01.818 AMBULATORY 12 LEAD EKG (GLOBAL) 2. Parkinson's disease (HCC) 332.0 G20 3. Diastolic dysfunction 429.9 I51.89 4. Essential hypertension 401.9 I10 5. BAKARI (obstructive sleep apnea) 327.23 G47.33 Patient Instructions Plan Patient is a good candidate for planned surgery- no further testing or change in medicinal regimen necessary She should take her blood pressure medication with a sip the morning before surgery and should take her parkinsons medication as is her usual routine as possible around the procedure - AUTHOR: Arabella Beltre MD 19:17 04/15/2019 documented in this encounter Plan of Treatment Date Type Specialty Care Team Description 05/14/2019 Ancillary Procedure Radiology 05/14/2019 Office Visit Orthopedics Caden Guevara MD [address] [address] 08/15/2019 Office Visit Internal Medicine Arabella Beltre MD [address] [place] [address] [phone] Name Type Priority Associated Diagnoses Order Schedule AMBULATORY 12 LEAD EKG EKG Routine Preop examination Ordered: 04/15/2019 (GLOBAL) Health Maintenance Due Date Last Done Comments HIV SCREENING 1960 ZOSTER IMMUNIZATION SERIES 07/26/2007 05/31/2007 (2 of 3) MEDICARE ANNUAL WELLNESS 07/04/2017 07/04/2016, 06/28/2015, VISIT 06/26/2014, Additional history exists INFLUENZA VACCINE (#1) 2019 04/25/2017, 05/03/2016, 06/04/2015, Additional history exists FALL RISK ASSESSMENT 05/05/2019 05/05/2018, 05/05/2018 MAMMOGRAM (SCREENING) 08/13/2019 08/13/2018, 12/26/2016, 12/21/2015, Additional history exists LIPID DISORDER SCREENING 09/26/2019 09/25/2018, 04/23/2017, 06/19/2014, Additional history exists DEPRESSION SCREENING 02/13/2020 02/12/2019 COLONOSCOPY SCREENING 08/17/2021 08/17/2016, 03/28/2016 OSTEOPOROSIS SCREENING [...] Type Problems Progress Blood Pressure Blood Pressure 120/68 No Alexsander, < 150/90 (04/15/2019 MD Arabella 6:09 PM EDT) Note: This is an individualized treatment (blood pressure) goal for Solange Avalos: Displayed above (on the left) is your goal for blood pressure control. Your most recent blood pressure is also shown above, on the right. You should try to achieve blood pressures that are lower than your goal listed above (on the left). Weight loss vs. 18 mo Lifestyle 7.6 (04/15/2019 6:09 PM EDT) No Arabella Beltre MD max (lbs) >= 10 Note: This is an individualized lifestyle goal for Solange Avalos: Your body mass index (BMI) is more than 30. You should lose weight. A reasonable starting goal is to lose 10 pounds. Displayed above is how many pounds you have lost thus far towards your 10 pound weight loss goal. Take all prescribed medications as directed Self-management Arabella Benito MD Note: This is an individualized self-management goal for Solange Avalos: Please take all prescribed medications as [...] of this encounter Implants Implanted Type Area Brand Designer Device Shelf Model / Identifier Expiration Serial / Lot Date Alton Gription Acetabular Shell 54mm Od Right: Hip DEPUY 12/04/2021 [id number] / Implanted: Qty: 1 on 12/25/2011 at [facility] / [id number] Alton Cancellous Bone Screw Right: Hip DEPUY 12/26/2019 1217-35-500 / Implanted: Qty: 1 on 12/25/2011 at [facility] / [id number] Axtell Hole Eliminator Right: Hip DEPUY 12/25/2021 [id number] / Implanted: Qty: 1 on 12/25/2011 at [facility] / [id number] Alton Cancellous Bone Screw Right: Hip DEPUY 11/24/2021 1217-15-500 / Implanted: Qty: 1 on 12/25/2011 at [facility] / [id number] Anataomic Adaptors 2mm Long - [id number] Left: GAMEZ 12/14/2019 [id number] / Implanted: Qty: 1 on 03/19/2018 by Caden Guevara MD at [facility] / [id number] Hybrid Small Baseplate Glenoid Left: GAMEZ 10/13/2022 [id number] / Implanted: Qty: 1 on 03/19/2018 by Caden Guevara MD at [facility] / [id number] Bone Cement, 40gm Full Dose - [id number] Left: DEPUY 05/15/2019 [id number] / Implanted: Qty: 1 on 03/19/2018 by Caden Guevara MD at [facility] / [id number] Cementless Finned Stems 16mm - [id number] Left: GAMEZ 02/12/2023 1304.15.160 / Implanted: Qty: 1 on 03/19/2018 by Caden Guevara MD at [facility] / [id number] Finned Humeral Body Anatomic - [id number] Left: GAMEZ 02/12/2023 1350.15.110 / Implanted: Qty: 1 on 03/19/2018 by Caden Guevara MD at [facility] / [id number] Humeral Heads 46mm - [id number] Left: GAMEZ 12/13/2022 1322.09.460 / Implanted: Qty: 1 on 03/19/2018 by Caden Guevara MD at [facility] / [id number] documented as of this encounter Results Not on filedocumented in this encounter Visit Diagnoses Diagnosis Preop examination - Primary Preoperative examination, unspecified Parkinson's disease (HCC) Paralysis agitans Diastolic dysfunction Heart disease, unspecified Essential hypertension Unspecified essential hypertension BAKARI (obstructive sleep apnea) Obstructive sleep apnea (adult) (pediatric) documented in this encounter Guarantor Name Account Type Relation to Date of Phone Billing Patient Address Solange Avalos Personal/Family 1945 [address] (Home) [address] [phone] [place], [place] (Work) [address] documented as of this encounter Advance Directives Type Date Recorded Patient Azure Developer Explanation Advance Directives 03/21/2018 12:23 PM
[2019-06-10 15:05] LABS: ALT < 3 U/L (7-52); AST 11 U/L (13-39); Albumin 4.3 g/dL (3.2-5.2); Alkaline Phosphatase 126 U/L (34-104); Anion Gap 6 mmol/L (2-11); BUN/Creatinine Ratio 29.7 (8-20); Blood Urea Nitrogen 22 mg/dL (6-24); C Reactive Protein 1.78 mg/L (<8.01); CO2 Carbon Dioxide 30 mmol/L (22-32); Chloride 102 mmol/L (101-111); EGFR African American 92.6 (>60); EGFR Non-African American 76.5 (>60); Globulin 2.1 g/dL (2-4); Glucose 103 mg/dL (70-100); Potassium 4.2 mmol/L (3.5-5.0); Sodium 138 mmol/L (135-145); Total Protein 6.4 g/dL (6.4-8.9)
[2019-06-10 15:14] LABS: Urine Appearance Clear; Urine Bilirubin Negative (Negative); Urine Blood Negative (Negative); Urine Color Straw; Urine Glucose Negative (Negative); Urine Ketones Negative (Negative); Urine Nitrite Negative (Negative); Urine Protein Negative (Negative); Urine Specific Gravity 1.005 (1.010-1.030); Urine Urobilinogen Negative (Negative)
[2019-06-10] MEDS ORDERED: NS 0.9% 500 ML* 500 ML IV ONE (16:52)
[2019-06-10 17:57] VITALS: BP 137/65
--- NOTE | 2019-06-10 19:26 | CONS ---
NEUROLOGY CONSULTATION NOTE: DATE OF CONSULT: 06/10/19 CONSULTING PROVIDER: Dr. Branch. REASON FOR CONSULT: The patient is complaining of intermittent chronic slurred speech and lightheadedness. I also discussed the case with Reyes Díaz NP, the patient's neurology provider. HISTORY OF PRESENT ILLNESS: Ms. Solange Avalos is a 73-year-old female with Parkinson disease diagnosed in 2014, who was last seen by Dr. Juan A Chaudhary in February of 2019. I reviewed the [facility] notes. The patient is a 73-year-old right-handed female, who suffers from chronic left foot weakness since 2011. She had a lumbar spine surgery at [facility] in February 2013, had a laminectomy with fusion of L4-L5 and developed footdrop after surgery. She currently has significant distal lower extremity weakness and wears AFOs. The patient stated that over the past 1 year she has had intermittent slurred speech and lightheadedness. The lightheadedness was worse today. She woke up at 6 a.m. feeling extremely dizzy. She denied any vertigo or tinnitus. She denied any acute ringing in the ears or hearing loss. She has chronic tinnitus. She denied any new weakness. She did not fall. She lives alone and is able to ambulate using a walker. The lightheadedness completely resolved after she took a nap. She contacted [facility] and she was referred to come to the ER for further evaluation. The patient currently denied any lightheadedness. She stated that she has intermittent slurred speech during her off time. She denied any new slurred speech or word-finding difficulty. The patient is currently undergoing DBS eligibility and evaluation. She had an MRI of the brain 1 month ago. PAST MEDICAL HISTORY: Parkinson disease, obstructive sleep apnea, idiopathic peripheral neuropathy, osteoarthritis, insomnia, spinal stenosis, dyslipidemia, hypertension, right foot hemangioma. PAST SURGICAL HISTORY: Arthroscopy of the left knee, right knee, total hip replacement of the right, laminectomy and fusion in 2012, shoulder surgery, wrist surgery, cataract removal. HOME MEDICATIONS: The patient is on: 1. Amlodipine 5 mg p.o. in the morning. 2. Carbidopa/levodopa 25/100 two tabs at 4 a.m., 2 tabs at 7 a.m., 3 tabs at 10 a.m., 2 tabs at 4 p.m. and 2 at 10 p.m. 3. Melatonin 3 mg 1 tablet by mouth every night at bedtime. 4. Azilect 1 mg by mouth daily. 5. VESIcare 5 mg p.o. at nighttime. 6. Losartan and hydrochlorothiazide 50/12.5. 7. Simvastatin 20 mg nightly. 8. Premarin 0.75 mg every 7 days. ALLERGIES: PENICILLIN, ADHESIVE TAPE, MORPHINE, VICODIN, and ROFECOXIB. FAMILY HISTORY: No history of stroke or seizures. There is a family history of aneurysms. Father had diabetes. Mother had atrial fibrillation. SOCIAL HISTORY: The patient lives alone. She denied any tobacco or alcohol use. REVIEW OF SYSTEMS: A 10-point review of systems was obtained and otherwise negative except for what was mentioned in the HPI. Specifically, the patient denied any complaints of chest pain, shortness of breath, palpitations, or headaches. PHYSICAL EXAM: Vitals: Temperature of 98.7, pulse of 65, respiratory rate of 20, oxygen saturation of 94%, blood pressure of 133/70. Orthostatic vitals were checked and are normal. Her heart rate did not significantly increase or decrease. General: Well-nourished, well-developed elderly female, who has Parkinson disease. She is requesting to take her Parkinson medication, for which I recommended she can proceed to do so. Head: Atraumatic, normocephalic without any obvious abnormality. Dry oral mucosa. Eyes: Conjunctivae/corneas are clear. Neck is supple and symmetrical with no carotid bruits. Cardiovascular: Regular rate and rhythm with normal S1, S2. Chest: Clear to auscultation bilaterally with no wheezing or rhonchi. Extremities: Normal range of motion with no cyanosis. Skin: No skin lesions or lacerations. Psych : Affect is broad, normal mood. The patient is irritable and agitated why she is in the ER and wants to go home. Neurological Examination: Mental Status: Awake, alert, and oriented to person, place, time, and general circumstances. She is hypophonic. Cranial Nerves: Pupils are equal, round, and reactive to light. Extraocular muscles are intact. There is no facial asymmetry except for she is deviating her mouth towards one side when she is talking. Mild intermittent slurred speech. Motor Examination: 5/5 strength in the upper extremities and she has what seems like bilateral footdrop in the distal lower extremities that is chronic. AFOs are in place. Sensation is intact to light touch throughout. Reflexes 1+ and symmetric in the biceps, brachioradialis, triceps, and knees bilaterally; 0 at the ankles bilaterally. Gait: Wide based gait with shuffling, en bloc turning, and fenestrated gait. Positive retropulsion. ASSESSMENT AND RECOMMENDATIONS: Ms. Solange Avalos is a 73-year-old female who has Parkinson disease since 2014, on Sinemet, Azilect, and is undergoing evaluation for deep brain stimulation. She presented to [facility] with a 1-year history of on and off intermittent dysarthria and lightheadedness. The dysarthria is mostly present and is associated with her on -off phenomenon. The lightheadedness is worse when she stands up and ambulates. She denied any vertigo. She denied any new weakness, double vision, or swallowing difficulty. These symptoms are not new. She has had an extended amount of lightheadedness today that is atypical for her, but it is the same lightheadedness that she has experienced in the past. According to the labs, the patient has elevated BUN/creatinine ratio and she does feel slightly dehydrated and has dry oral mucosa. Therefore, dehydration may be playing a role here with exacerbating some of her symptoms of lightheadedness. Therefore , I recommend and given her 1 bolus of 500 mL of normal saline. We may need to reconsider hydrochlorothiazide as an antihypertensive agent given that she has a risk of developing orthostatic hypotension and she is currently dehydrated on today's evaluation. I defer this further management to the primary team. Defer disposition to the ER team. I do not recommend admission to the hospital as these symptoms are definitely chronic and the patient refused admission if required. She also refused any intracranial imaging. I discussed these recommendations with Dr. Branch and Reyes Díaz, DENISE, who agreed with the plan. The patient will be discharged home. [id number]/[facility] #: [id number] [facility] HOSPITALDamon
== END 2019-06-10 17:56 | disposition home or self-care (01) ==
LOC: ED 14:04
DX: R42 Dizziness and giddiness (principal); G20 Parkinson's disease; I25.10 Atherosclerotic heart disease of native coronary artery without angina pectoris; E78.00 Pure hypercholesterolemia, unspecified; I10 Essential (primary) hypertension; Z79.899 Other long term (current) drug therapy; Z96.653 Presence of artificial knee joint, bilateral; Z96.643 Presence of artificial hip joint, bilateral; Z88.5 Allergy status to narcotic agent; Z88.0 Allergy status to penicillin; Z88.8 Allergy status to other drugs, medicaments and biological substances
CPT/HCPCS: 36415; 71046; 80053; 81003; 82607; 83735; 84443; 84484; 85025; 86140; 93005; 99283

== ENCOUNTER 2019-09-22 17:37 | Emergency (ER) | payer MEDICARE, BC ==
--- NOTE | 2019-09-22 18:01 | ED ---
Head Injury - HPI Summary HPI Summary: Patient is a 74 y/o F presenting to the ED for a chief complaint of blurred vision and diplopia that began after a fall that occurred on 09/22/19. Patient states she was walking to a dryer when she shifted her weight and lost her balance, hitting the left side of her head. Patient denies a loss of consciousness or neck pain. At baseline, patient has slurred speech. No aggravating or alleviating factors are reported. Patient is concerned she has a subdural hematoma. One week ago, patient had deep brain stimulation surgery in [place] for a PMHx of Parkinsons disease. She denies taking blood thinners. - History Of Current Complaint Chief Complaint: EDFall Stated Complaint: FALL/DOUBLE VISION PER EMS Time Seen by Provider: 09/22/19 17:51 Hx Obtained From: Patient Mechanism Of Injury: Fall From A Standing Position Onset/Duration: Traumatic - Fall, Still Present Severity Currently: None Severity Initially: Moderate Pain Intensity: 0 Pain Scale Used: 0-10 Numeric Aggravating Factor(s): Other: - Nothing Alleviating Factor(s): Other: - Nothing Associated Signs And Symptoms: Visual Changes - Positive blurred vision and diplopia - Allergies/Home Medications Allergies/Adverse Reactions: Allergies Allergy/AdvReac Type Severity Reaction Status Date / Time hydrocodone Allergy Severe Hallucinati Verified 06/10/19 14:22 ons Penicillins Allergy Severe Hives Verified 06/10/19 14:22 rofecoxib AdvReac Severe Coughing Verified 06/10/19 14:22 Adhesive Tape AdvReac Intermediate Rash And Verified 06/10/19 14:22 Itching MORPHINE Allergy Severe Vomiting Uncoded 06/10/19 14:22 Home Medications: Home Medications Conjugated Estrogens VAG CM* [Premarin VAG CREAM*] 1 applic VAGINAL WEEKLY 08/23 [History Confirmed 09/22/19] amLODIPine TAB* [Norvasc 5 mg TAB*] 5 mg PO QAM 08/23/12 [History Confirmed 04/04] Rasagiline (NF) [Azilect (NF)] 1 mg PO QAM 03/23/17 [History Confirmed 09/22/19] Saline NASAL DROPS 0.65%* [Sodium Chloride 0.65% Nasal DROPS*] 1 spray BOTH NARES BEDTIME PRN 03/23/17 [History Confirmed 09/22/19] Acetaminophen [Acetaminophen Extra Strength] 500 - 1,500 mg PO DAILY PRN [History Confirmed 09/22/19] Simvastatin TAB(NF) [Zocor(NF)] 20 mg PO BEDTIME 11/13/18 [History Confirmed 04/04] Sodium Chloride 5% OPTH.SRI* [Jaspreet 128 Opth 5% OPTH.SOLl*] 1 - 2 drop BOTH EYES BID 04/10/19 [History Confirmed 09/22/19] C,E,Zinc,Copper 11/Mxwhs7z/Lut [Ocuvite Adult 50 Plus Softgel] 1 each PO DAILY 06/10/19 [History Confirmed 09/22/19] Calcium Citrate 200 mg PO DAILY 06/10/19 [History Confirmed 09/22/19] Solifenacin(NF) [Vesicare(NF)] 5 mg PO DAILY 06/10/19 [History Confirmed ] Carbidopa/Levodop 25/100 MG(*) [Sinemet 25/100 TAB(*)] 1 tab PO 0700,1500 [History Confirmed 09/22/19] Carbidopa/Levodop 25/100 MG(*) [Sinemet 25/100 TAB(*)] 2 tab PO 0300,1000,2100 09/22/19 [History Confirmed 09/22/19] Losartan/Hydrochlorothiazide [Losartan Potassium/Hydroc 50-12.5 mg] 1 tab PO DAILY 09/22/19 [History Confirmed 09/22/19] Melatonin (NF) 3 mg PO BEDTIME PRN 09/22/19 [History Confirmed 09/22/19] Polyvinyl Alcohol [Akwa Tears] 1 drop BOTH EYES DAILY PRN 09/22/19 [History Confirmed 09/22/19] PMH/Surg Hx/FS Hx/Imm Hx Previously Healthy: Yes Endocrine/Hematology History: Denies: Hx Diabetes Cardiovascular History: Reports: Hx Coronary Artery Disease, Hx Hypercholesterolemia, Hx Hypertension - ON MEDICATION FOR, Hx Valvular Heart Disease - hardnening of valve related to age Denies: Hx Pacemaker/ICD, Other Cardiovascular Problems/Disorders Respiratory History: Reports: Hx Pneumonia - aspiration pneumonia, Hx Sleep Apnea - DX 2007, Other Respiratory Problems/Disorders - aspiration pneumonia post op, resp failure-2005 Denies: Hx Asthma GI History: Reports: Hx Gall Bladder Disease - gall stones, Hx Gastroesophageal Reflux Disease - HX OF-REPORTS HAS STARTED A MEDICATION PRIOR TO PAST SURGERY, Hx Hiatal Hernia Denies: Other GI Disorders History: Denies: Hx Renal Disease, Other Problems/Disorders Musculoskeletal History: Reports: Hx Arthritis, Hx Bursitis - BILATERAL HIPS IN THE PAST Denies: Other Musculoskeletal History Sensory History: Reports: Hx Cataracts - BILATERAL, Hx Contacts or Glasses - GLASSES Denies: Hx Legally Blind, Hx Deafness, Hx Hearing Aid Opthamlomology History: Reports: Hx Cataracts - BILATERAL, Hx Contacts or Glasses - GLASSES Denies: Hx Legally Blind EENT History: Denies: Hx Deafness Neurological History: Reports: Hx Nerve Disease - DX 2014-[facility], Other Neuro Impairments/Disorders - Parkinson's disease Psychiatric History: Reports: Hx Anxiety - AFTER SURGERY 2006-[facility]- TREATED WITH BEHAVORIAL MOD WITH COUNSLER Denies: Hx Panic Disorder - Cancer History Hx Chemotherapy: No - Surgical History Surgical History: Yes Surgery Procedure, Year, and Place: 1987 [facility]- Le's neuroma,. 1991 [facility]- ( right) knee torn meniscus,. 2000 [facility]- (RIGHT) kneeARTHROSCOPY. , 2003 [facility] - (RIGHT) TKR,. 2006 [facility]- (LEFTt). BILATERAL CATARACTS. (left) TOTAL HIP , 2008 [facility]-. ANGIANOMA RIGHT FOOT,. ;RIGHT T TOTAL HIP 2012 [facility]. Laminectomy& Fusion of L4-5 February 27, 2013 at [facility] in [facility]. 2015, carpal tunel left [facility]. LEFT WRIST WITH HARDWARE-2016. LEFT SHOULDER REPLACEMENT. Deep Brain Stimulation, 2019 Hx Anesthesia Reactions: Yes - MORPHINE-VOMITING Infectious Disease History: No Infectious Disease History: Denies: Traveled Outside the in Last 30 Days - Family History Known Family History: Positive: Hypertension Negative: Blood Disorder - Social History Occupation: Retired Alcohol Use: Rare Alcohol Amount: 2 per month Hx Substance Use: No Substance Use Type: Reports: None Hx Tobacco Use: No Smoking Status (MU): Never Smoked Tobacco Have You Smoked in the Last Year: No Review of Systems Positive: Blurred Vision, Diplopia Negative: Myalgia - Negative neck pain Positive: Slurred Speech - At baseline. Negative: Syncope - LOC All Other Systems Reviewed And Are Negative: Yes Physical Exam - Summary Physical Exam Summary: Appearance: The patient is well-nourished in no acute distress and in no acute pain. Skin: The skin is warm and dry, and skin color reflects adequate perfusion. HEENT: The head is normocephalic and atraumatic. The pupils are equal and reactive. The conjunctivae are clear and without drainage. Nares are patent and without drainage. Mouth reveals moist mucous membranes, and the throat is without erythema and exudate. The external ears are intact. The ear canals are patent and without drainage. The tympanic membranes are intact. Wounds are clean. Neck: The neck is supple with full range of motion and non-tender. There are no carotid bruits. There is no neck vein distension. Respiratory: Chest is non-tender. Lungs are clear to auscultation and breath sounds are symmetrical and equal. Cardiovascular: Heart is regular rate and rhythm. There is no murmur or rub auscultated. There is no peripheral edema and pulses are symmetrical and equal. Abdomen: The abdomen is soft and non-tender. There are normal bowel sounds heard in all four quadrants and there is no organomegaly palpated. Musculoskeletal: There is no back tenderness noted. Extremities are non-tender with full range of motion. There is good capillary refill. There is no peripheral edema or calf tenderness elicited. Neurological: Patient is alert and oriented to person, place and time. The patient has symmetrical motor strength in all four extremities. Cranial nerves are grossly intact. Deep tendon reflexes are symmetrical and equal in all four extremities. Patient has slurred speech. Psychiatric: The patient has an appropriate affect and does not exhibit any anxiety or depression. Triage Information Reviewed: Yes Vital Signs On Initial Exam: Initial Vitals Temp Pulse Resp BP Pulse Ox 98.9 F 74 18 110/48 92 09/22/19 17:39 09/22/19 17:39 09/22/19 17:39 09/22/19 17:39 09/22/19 17:39 Vital Signs Reviewed: Yes - Hector Coma Scale Best Eye Response: 4 - Spontaneous Best Motor Response: 6 - Obeys Commands Best Verbal Response: 5 - Oriented Coma Scale Total: 15 Procedures - Sedation Patient Received Moderate/Deep Sedation with Procedure: No Diagnostics - Vital Signs Vital Signs Temp Pulse Resp BP Pulse Ox 09/22/19 17:39 98.9 F 74 18 110/48 92 - Laboratory Lab Statement: Any lab studies that have been ordered have been reviewed, and results considered in the medical decision making process. - CT Brain CT CT Interpretation Completed By: Radiologist Summary of CT Findings: Brain CT IMPRESSION: No acute intracranial abnormality. Chronic microvascular ischemic changes. Reviewed by Dr. Garcia. Head Injury Course/Dx Course Of Treatment: Ms. Lay presented asking for CT scan as she fell and hit the back of her head and has had recent surgery. She was nontoxic in appearance with stable vitals. Plain CT was negative for any acute bleeding. When she first presented she had some complaints of the diplopia but this resolved after CT. She was not concerned and reiterated that she just wanted the CT scan. - Diagnoses Provider Diagnoses: Head injury Discharge ED - Sign-Out/Discharge Documenting (check all that apply): Patient Departure - Discharge - Discharge Plan Condition: Stable Disposition: HOME Patient Education Materials: Head Injury (ED) Referrals: Arabella Beltre MD [Primary Care Provider] - Additional Instructions: RETURN TO THE EMERGENCY DEPARTMENT FOR CHANGING OR WORSENING SYMPTOMS. Follow up with your primary care physician in 2-3 days. - Billing Disposition and Condition Condition: STABLE Disposition: Home - Attestation Statements Document Initiated by Scribe: Yes Documenting Scribe: Margarita Perez Provider For Whom Scribe is Documenting (Include Credential): Johnny Garcia MD Scribe Attestation: Margarita Garcia, laishaed for Johnny Garcia MD on 09/22/19 at 2143. Scribe Documentation Reviewed: Yes Provider Attestation: The documentation as recorded by the Margarita liz accurately reflects the service I personally performed and the decisions made by me, Johnny Garcia MD Status of Scribe Document: Viewed
--- OUTSIDE RECORDS SUMMARY | 2019-09-22 18:07 | XMS REPORT | Summary of Care ---
:1945 Author Organization [facility] Address [address] [address] Care Team Providers Name Role Phone Arabella Beltre Primary Care Provider Reason for Visit Reason Comments Follow Up 6 month follow up - lower quad pain Hypertension Parkinson'S Disease Vertigo c/o vertigo for a few months Encounter Details Date Type Department Care Team Description 08/15/2019 Office Visit [place] [facility] Arabella Beltre MD Parkinson's disease (HCC) (Primary Dx); Medicine [address] Essential hypertension; [address] [place] [address] Diastolic dysfunction; [place] [address] BAKARI (obstructive sleep apnea); [phone] Hypercholesterolemia; Hormone replacement therapy Allergies Active Allergy Reactions Severity Noted Date Comments Tape: Silk Or Dermatologic Reaction 11/27/2007 Adhesive Morphine GI Reaction 03/19/2018 Penicillins Hives 08/15/2005 Rofecoxib GI Reaction 08/15/2005 Hydrocodone-Acetamino [employer] Reaction 04/07/2015 Hallucinations, phen constipation documented as of this encounter (statuses as of 08/15/2019) Medications Medication Sig Dispensed Refills Start Date End Date Status Multiple Take by mouth. 0 Active Vitamins-Minerals (OCUVITE ADULT 50+ PO) Rasagiline Mesylate Take by mouth 0 Active (AZILECT) 1 MG Oral DAILY. Tab Saline 0.65 % (Soln) De Ruyter in nose 0 Active Nasal Solution NEEDED. Hypromellose Place to the 0 Active (ARTIFICIAL TEARS OP) external eye NEEDED. Risedronate Sodium 150 Take 1 Tab by 3 Tab 3 02/04/2018 Active MG Oral mouth EVERY THIRTY TabIndications: DAYS. Osteoporosis, unspecified osteoporosis type, unspecified pathological fracture presence Additional information Patient taking differently: 150 mg Oral [id number], Pt has not started it yet., Reported [...] Reported on 08/07/2018 1:50 PM acetaminophen (TYLENOL) Take 2 Tabs by 120 Tab 0 04/29/2018 Active 325 MG Oral Tab mouth EVERY FOUR HOURS NEEDED for Pain. Pt states she takes 2 500 mg daily and 2 325 mg tabs daily celeCOXIB (CELEBREX) 200 Take 1 Cap by 90 Cap 3 08/07/2018 Active MG Oral Cap mouth DAILY. atorvastatin (LIPITOR) 20 Take 1 Tab by 90 Tab 3 09/25/2018 Active MG Oral TabIndications: mouth DAILY. Pure hypercholesterolemia SODIUM CHLORIDE, Place 0.5 % to 0 Active HYPERTONIC, OP the external eye TWICE DAILY. calcium carbonate-vitamin TAKE 1 TABLET BY 30 Tab 4 08/14/2019 Active D (CALTRATE-D) 600-400 MOUTH DAILY FOR MG-UNIT Oral Tab DEFICIENCY Losartan-Hydrochlorothiazi Take 1 Tab by 90 Tab 3 08/15/2019 Active de 50-12.5 MG Oral mouth DAILY. TabIndications: Essential hypertension amLodipine (NORVASC) 5 MG Take 1 Tab by 90 Tab 3 08/15/2019 Active Oral TabIndications: mouth DAILY. Essential hypertension estrogens, conjugated Place 0.75 42.5 g 5 08/15/2019 Active (PREMARIN) 0.625 MG/GM Applicators into Vaginal CreamIndications: the vagina EVERY Hormone replacement 7 DAYS. therapy simvastatin (ZOCOR) 20 MG Take 1 Tab by 90 Tab 3 08/15/2019 Active Oral TabIndications: Pure mouth DAILY. hypercholesterolemia Solifenacin Succinate 5 MG Take 1 Tab by 90 Tab 3 08/15/2019 Active Oral TabIndications: mouth DAILY. Parkinson's disease (HCC) carbidopa-levodopa Take 1 Tab by 0 08/15 Discontinued (SINEMET) 25-100 MG Oral mouth DAILY. At (Duplicate Order) Tab 0645 amLodipine (NORVASC) 5 MG Take 1 Tab by 90 Tab 3 08/07/201808/15 Discontinued Oral TabIndications: mouth DAILY. (Reorder) Essential hypertension estrogens, conjugated Place 0.75 42.5 g 3 08/07/201808/15 Discontinued (PREMARIN) 0.625 MG/GM Applicators into (Reorder) Vaginal CreamIndications: the vagina EVERY Hormone replacement 7 DAYS. therapy Losartan-Hydrochlorothiazi TAKE 1 TABLET BY 30 Tab 4 08/14/201908/15 Discontinued de 50-12.5 MG Oral MOUTH DAILY (Reorder) TabIndications: Essential hypertension simvastatin (ZOCOR) 20 MG TAKE 1 TABLET BY 30 Tab 4 08/14/201908/15 Discontinued Oral Tab MOUTH DAILY AT (Reorder) BEDTIME Solifenacin Succinate 5 MG TAKE 1 TABLET BY 30 Tab 4 08/14/201908/15 Discontinued Oral Tab MOUTH DAILY AT (Reorder) BEDTIME documented as of this encounter (statuses as of 08/15/2019) Active Problems Problem Noted Date Diastolic dysfunction 03/08/2018 Arthritis of left shoulder region 12/13/2017 Overview: Added automatically from request for surgery [id number] Left shoulder pain 11/28/2017 Trochanteric bursitis of left hip 07/27/2017 Osteoporosis 07/25/2017 Overview: Start fosamax 08/02 after fracture wrist - Parkinson's disease 06/28/2015 History of total bilateral knee replacement 06/25/2015 Spinal stenosis 12/11/2012 Overview: Spinal surgery at [place] L4-[address] with fusion 0 [address] Clinton Foot drop and pain better BAKARI (obstructive sleep apnea) 11/21/2012 [place] [facility]12, moderate to severer obstructive [...] as of this encounter (statuses as of 08/15/2019) Immunizations Name Administration Dates Next Due H1N1 Injectable Adult 07/20/2009 Influenza (IM) Preservative [...] Sign Reading Time Taken Comments Blood Pressure 124/60 08/15/2019 12:57 PM EST Pulse 81 08/15/2019 12:57 PM EST Temperature - - Respiratory Rate - - Oxygen Saturation 97% 08/15/2019 12:57 PM EST Inhaled Oxygen Concentration - - Weight 90.9 kg (200 lb 6.4 oz) 08/15/2019 12:57 PM EST Height 165.1 cm (5' 5") 08/15/2019 12:57 PM EST Body Mass Index 33.35 08/15/2019 12:57 PM EST documented in this encounter Progress Notes Arabella Beltre MD - 08/15/2019 1:00 PM EST NAME:Solange Avalos [birth year] ENC Date: 08/15/2019 CC: Chief Complaint Patient presents with Follow Up 6 month follow up - lower quad pain Hypertension Parkinson'S Disease Vertigo c/o vertigo for a few months Solange Avalos is a 74-y.o. female Living at [facility] with neurology for Parkinsons disease Recent CARPAL TUNNEL surgery 2. Vertigo- Seen by neurology - Ordered to have- Physical Therapy - activated the left hip - Taking 2.3 grams actetamonphen 3. DBS - for the parkinsons - Hopeful for change- May need preop \\blood work and EKG for preop ordered 4. Arthritis has kicked up - Hand painful - Taking celebrex - discussed adding actetamonphen - Taking 2.5 grams at this time- Current Outpatient Medications Medication Sig acetaminophen (TYLENOL) 325 MG Oral Tab Take 2 Tabs by mouth EVERY FOUR HOURS NEEDED for Pain. Pt states she takes 2 500 mg daily and 2 325 mg tabs daily amLodipine (NORVASC) 5 MG Oral Tab Take 1 Tab by mouth DAILY. atorvastatin (LIPITOR) 20 MG Oral Tab Take 1 Tab by mouth DAILY. calcium carbonate-vitamin D (CALTRATE-D) 600-400 MG-UNIT Oral Tab TAKE 1 TABLET BY MOUTH DAILY FOR DEFICIENCY carbidopa-levodopa (SINEMET CR) 25-100 MG Oral Tab CR Take 2 Tabs by mouth FOUR TIMES DAILY. At 0500, 1000, 1600, 2300 (Patient taking differently: Take 2 Tabs by mouth FOUR TIMES DAILY. At 0400, 0700, (1000 AM taking 3 tabs), 1600, and 2200 takes taking 2 tab) celeCOXIB (CELEBREX) 200 MG Oral Cap Take [...] yet.) Saline 0.65 % (Soln) Nasal Solution De Ruyter in nose NEEDED. simvastatin (ZOCOR) 20 MG Oral Tab Take 1 Tab by mouth DAILY. SODIUM CHLORIDE, HYPERTONIC, OP Place 0.5 % to the external eye TWICE DAILY. Solifenacin Succinate 5 MG Oral Tab Take 1 Tab by mouth DAILY. No current facility-administered medications for this visit. Patient Active Problem List Diagnosis Date Noted Diastolic dysfunction 03/08/2018 Arthritis of left shoulder region 12/13/2017 Added automatically from request for surgery [id number] Left shoulder pain 11/28/2017 Trochanteric bursitis of left hip 07/27/2017 Osteoporosis 07/25/2017 Start fosamax 08/02 after fracture wrist - Parkinson's disease (HCC) 06/28/2015 History of total bilateral knee replacement 06/25/2015 Spinal stenosis 12/11/2012 Spinal surgery at [place] L4-5 laminectomy with fusion 0 Dr Clinton Foot drop and pain better BAKARI (obstructive sleep apnea) 11/21/2012 [facility]12, moderate to severer obstructive [...] week Comment: occasional monthly Drug use: No P OBJECTIVE: BP 124/60 | Pulse 81 | Ht 5' 5" (1.651 m) | Wt 200 lb 6.4 oz (90.9 kg) | SpO2 97% | BMI 33.35 kg/m . Right hand - Arthritic deformity - ICD-9-CM ICD-10-CM 1. Parkinson's disease (HCC) For dbs - 332.0 G20 Solifenacin Succinate 5 MG Oral Tab BASIC METABOLIC PANEL CBC WITH DIFFERENTIAL TYPE AND SCREEN URINALYSIS (LAB) WITH REFLEX CULTURE PARTIAL THROMBOPLASTIN TIME AMBULATORY 12 LEAD EKG ([facility]) 2. Essential hypertension- Regularly 401.9 I10 Losartan-Hydrochlorothiazide 50 -12.5 MG Oral Tab amLodipine (NORVASC) 5 MG Oral Tab 3. Diastolic dysfunction- 429.9 I51.89 4. BAKARI (obstructive sleep apnea)- consistent with Use of mask 327.23 G47.33 5. Hypercholesterolemia- good control, continue present treatment 272.0 E78.00 simvastatin (ZOCOR)20 MG Oral Tab 6. Hormone replacement therapy- Topical only V07.4 Z79.890 estrogens, conjugated (PREMARIN) 0.625 MG/GM Vaginal Cream There are no Patient Instructions on file for this visit. AUTHOR: Arabella Beltre MD 13:37 08/15/2019 documented in this encounter Plan of Treatment Name Type Priority Associated Diagnoses Order Schedule BASIC METABOLIC PANEL Lab Routine Parkinson's disease Expected: 08/15/2019 ([facility]) (Approximate), Expires: 02/11/2020 CBC WITH DIFFERENTIAL Lab Routine Parkinson's disease Expected: 08/15/2019 ([facility]) (Approximate), Expires: 02/11/2020 TYPE AND SCREEN Lab Routine Parkinson's disease Expected: 08/15/2019 ([facility]) (Approximate), Expires: 02/11/2020 URINALYSIS (LAB) WITH Lab Routine Parkinson's disease Expected: 08/15/2019 REFLEX CULTURE ([facility]) (Approximate), Expires: 02/11/2020 PARTIAL THROMBOPLASTIN TIME Lab Routine Parkinson's disease Expected: 08/15 ([facility]) (Approximate), Expires: 08/15/2020 AMBULATORY 12 LEAD EKG EKG Routine Parkinson's disease Ordered: 08/15/2019 ([facility]) ([facility]) Health Maintenance Due Date Last Done Comments MEDICARE ANNUAL WELLNESS 07/04/2017 07/04/2016, 06/28/2015, VISIT 06/26/2014, Additional history exists INFLUENZA VACCINE (#1) 2020 04/25/2017, 05/03/2016, Postponed from 06/04/2015, Additional 03/16/2019 (Other) history exists DEPRESSION SCREENING 02/13/2020 02/12/2019 FALL RISK ASSESSMENT 05/14/2020 05/14/2019, 05/14/2019 ZOSTER IMMUNIZATION SERIES 08/14/2020 05/31/2007 Postponed from (2 of 3) 07/26/2007 (Vaccine not available) HIV SCREENING 08/15/2020 Postponed from 1958 (Patient refused) Colonoscopy 08/17/2021 08/17/2016, 03/28/2016 OSTEOPOROSIS SCREENING 11/09/2021 11/10/2011 DTaP/Tdap/Td Vaccines (3 - 06/28/2025 06/28/2015, 10/02/2005 Tdap) PNEUMOCOCCAL 65+YRS Completed 06/28/2015, 05/03/2012 HEPATITIS A IMMUNIZATION Aged Out No longer eligible SERIES based on patient's age to complete this topic HPV IMMUNIZATION SERIES Aged Out No longer eligible based on patient's age to complete this topic MENINGOCOCCAL VACCINE IMM Aged Out No longer eligible based on patient's age to complete this topic documented as of this encounter Goals Goal Patient Goal Associated Recent Patient-Stated? Author Type Problems Progress Blood Pressure Blood Pressure 124/60 No Alexsander, < 150/90 (08/15/2019 MD Arabella 12:57 PM EST) Note: This is an individualized treatment (blood pressure) goal for Solange Avalos: Displayed above (on the left) is your goal for blood pressure control. Your most recent blood pressure is also shown above, on the right. You should try to achieve blood pressures that are lower than your goal listed above (on the left). Weight loss vs. 18 mo Lifestyle 7.6 (08/15/2019 12:57 PM EST) No Arabella Beltre MD max (lbs) >= [...] of this encounter Implants Implanted Type Area Stores Laborer Device Shelf Model / Identifier Expiration Serial / Lot Date Pattison Gription Acetabular Shell 54mm Od Right: Hip DEPUY 12/04/2021 [id number] / Implanted: Qty: 1 on 12/25/2011 at [facility] / [id number] Pattison Cancellous Bone Screw Right: Hip DEPUY 12/26/2019 1217-35-500 / Implanted: Qty: 1 on 12/25/2011 at [facility] / [id number] Pierre Part Hole Eliminator Right: Hip DEPUY 12/25/2021 [id number] / Implanted: Qty: 1 on 12/25/2011 at [facility] / [id number] Pattison Cancellous Bone Screw Right: Hip DEPUY 11/24/2021 1217-15-500 / Implanted: Qty: 1 on 12/25/2011 at [facility] / [id number] An[employer] Adaptors 2mm Long - [id number] Left: GAMEZ 12/14/2019 1331.15.272 / Implanted: Qty: 1 on 03/19/2018 by Caden Guevara MD at [facility] Shoulder / [id number] Hybrid Small Baseplate Glenoid Left: GAMEZ 10/13/2022 1379.59.110 / Implanted: Qty: 1 on 03/19/2018 by Caden Guevara MD at [facility] Shoulder / [id number] Bone Cement, 40gm Full Dose - [id number] Left: DEPUY 05/15/2019 [id number] / Implanted: Qty: 1 on 03/19/2018 by Caden Guevara MD at [facility] Shoulder / [id number] Cementless Finned Stems 16mm - [id number] Left: GAMEZ 02/12/2023 1304.15.160 / Implanted: Qty: 1 on 03/19/2018 by Caden Guevara MD at [facility] / [id number] Finned Humeral Body Anatomic - [id number] Left: GAMEZ 02/12/2023 1350.15.110 / Implanted: Qty: 1 on 03/19/2018 by Caden Guevara MD at [facility] / [id number] Humeral Heads 46mm - [id number] Left: GAMEZ 12/13/2022 1322.09.460 / Implanted: Qty: 1 on 03/19/2018 by Caden Guevara MD at [facility] / [id number] documented as of this encounter Results Not on filedocumented in this encounter Visit Diagnoses Diagnosis Parkinson's disease (HCC) Paralysis agitans Essential hypertension Unspecified essential hypertension Diastolic dysfunction Heart disease, unspecified BAKARI (obstructive sleep apnea) Obstructive sleep apnea (adult) (pediatric) Hypercholesterolemia Pure hypercholesterolemia Hormone replacement therapy documented in this encounter Guarantor Name Account Type Relation to Date of Phone Billing Patient Address RobbieSolange Personal/Family 1945 [phone] [address] (Home) [place] [address] [phone] [place], [place] (Work) [id number] documented as of this encounter Advance Directives Type Date Recorded Patient [employer] Explanation Advance Directives 03/21/2018 12:23 PM
--- OUTSIDE RECORDS SUMMARY | 2019-09-22 18:07 | XMS REPORT | Summary of Care ---
:1945 Author Organization [facility] Address [address] [address] Care Team Providers Name Role Phone Arabella Beltre Primary Care Provider Reason for Visit Reason Comments Pre-op Exam brain surg Encounter Details Date Type Department Care Team Description 08/26/2019 Office Visit [facility] Arabella Beltre MD Preop examination (Primary Dx); Medicine [facility] Parkinson's disease (HCC); [address] [place] [address] Essential hypertension; [place] [address] Diastolic dysfunction; [phone] BAKARI (obstructive sleep apnea) Allergies Active Allergy Reactions Severity Noted Date Comments Tape: Silk Or Dermatologic Reaction 11/27/2007 Adhesive Morphine GI Reaction 03/19/2018 Penicillins Hives 08/15/2005 Rofecoxib GI Reaction 08/15/2005 Hydrocodone-Acetamino ORDER DISPATCHER Reaction 04/07/2015 Hallucinations, phen constipation documented as of this encounter (statuses as of 08/26/2019) Medications Medication Sig Dispensed Refills Start Date End Date Status Multiple Take by mouth. 0 Active Vitamins-Minerals (OCUVITE ADULT 50+ PO) Rasagiline Mesylate Take by mouth 0 Active (AZILECT) 1 MG Oral DAILY. Tab Saline 0.65 % (Soln) Hortense in nose 0 Active Nasal Solution NEEDED. Hypromellose Place to the 0 Active (ARTIFICIAL TEARS OP) external eye NEEDED. Risedronate Sodium 150 Take 1 Tab by 3 Tab 3 02/04/2018 Active MG Oral mouth EVERY THIRTY TabIndications: DAYS. Osteoporosis, unspecified osteoporosis type, unspecified pathological fracture presence Additional information Patient taking differently: 150 mg Oral [id number], Pt has not started it yet., Reported [...] daily and 2 325 mg tabs daily atorvastatin (LIPITOR) 20 Take 1 Tab by [...] Oral TabIndications: mouth DAILY. Parkinson's disease (HCC) celeCOXIB (CELEBREX) 200 Take 1 Cap by 90 Cap 3 08/07/201808/26 Discontinued MG Oral Cap mouth DAILY. (Provider Discontinued) documented as of this encounter (statuses as of 08/26/2019) Active Problems Problem Noted Date Diastolic dysfunction 03/08/2018 Arthritis of left shoulder region 12/13/2017 Overview: Added automatically from request for surgery [id number] Left shoulder pain 11/28/2017 Trochanteric bursitis of left hip 07/27/2017 Osteoporosis 07/25/2017 Overview: Start fosamax 08/02 after fracture wrist - Parkinson's disease 06/28/2015 History of total bilateral knee replacement 06/25/2015 Spinal stenosis 12/11/2012 Overview: Spinal surgery at [facility] L4-[address]aminectomy [address] fusion [address] Clinton Foot drop and pain better BAKARI (obstructive sleep apnea) 11/21/2012 Overview: [facility] sleep lab 11/08/12, moderate to severer obstructive [...] as of this encounter (statuses as of 08/26/2019) Immunizations Name Administration Dates Next Due H1N1 [...] Sign Reading Time Taken Comments Blood Pressure 120/66 08/26/2019 1:44 PM EST Pulse 78 08/26/2019 1:44 PM EST Temperature - - Respiratory Rate - - Oxygen Saturation 98% 08/26/2019 1:44 PM EST Inhaled Oxygen Concentration - - Weight 90.7 kg (200 lb) 08/26/2019 1:44 PM EST Height 165.1 cm (5' 5") 08/26/2019 1:44 PM EST Body Mass Index 33.28 08/26/2019 1:44 PM EST documented in this encounter Patient Instructions Patient InstructionsCreArabella morton MD - 08/26/2019 2:00 PM ESTPatient has been instructed to hold PD medication night before surgery- Not on any medication that is antiplatelet or anticoag May take cholesterol lower medication the night before and blood pressure medication with a sip morning of surgery as appropriate documented in this encounter Progress Notes Arabella Beltre MD - 08/26/2019 2:00 PM EST NAME:Solange Avalos 1945: 1945 ENC Date: 08/26/2019 CC: Chief Complaint Patient presents with Pre-op Exam brain surg Solange Avalos is a 74-y.o. female preop evualuation for DBS for parkinsons disease - Patient has no previous history of cardiopulmonary Disease Echo 2016- showed grade 2 diastolic dysfunction - with normal left and right heart function - Was aerobic in summer( water aerobics) and does recumbant bike 2-3 x week for 10 min now. She does have diagnosis of obsructive sleep apnea - wears mask regularly She denies any chest pressure / shortness of breath / palpitations / cough / faint with activity She has no history of bleeding or cclotting disorder She has no history of anesthetic intolerance- Current Outpatient Medications Medication Sig acetaminophen (TYLENOL) [...] 1600, and 2200 takes taking 2 tab) estrogens, conjugated (PREMARIN) 0.625 MG/GM Vaginal Cream [...] yet.) Saline 0.65 % (Soln) Nasal Solution Hortense in nose NEEDED. simvastatin (ZOCOR) 20 MG [...] 12/13/2017 Added automatically from request for surgery [id number] Left shoulder pain 11/28/2017 Trochanteric bursitis of left hip 07/27/2017 Osteoporosis 07/25/2017 Start fosamax 08/02 after fracture wrist - Parkinson's disease (HCC) 06/28/2015 History of total bilateral knee replacement 06/25/2015 Spinal stenosis 12/11/2012 Spinal surgery at [facility] [facility] L4-[address] laminectomy with fusion 0 Dr Clinton Foot drop and pain better BAKARI (obstructive sleep apnea) 11/21/2012 [facility] sleep lab 11/08/12, moderate to severer obstructive [...] occasional monthly Drug use: No OBJECTIVE: BP 120/66 | Pulse 78 | Ht 5' 5" (1.651 m) | Wt 200 lb (90.7 kg) | SpO2 98% | BMI 33.28 kg/m. Heent neg Lungs Clear CV rrr 2/6 systolic murmur - Abd soft, nontender, no organomegaly Ext no edema; Neuro: intellect intact ; motor including gait unremarkable EKG- cannot rule out AWMI But No change from 05/03 EKG or 03/02 ) See Echo results above A/P ICD-9-CM ICD-10-CM 1. Preop examination V72.84 Z01.818 AMBULATORY 12 LEAD EKG (GLOBAL) CBC WITH DIFFERENTIAL COMPREHENSIVE METABOLIC PANEL URINE DIP MANUAL (AMB POCT) 2. Parkinson's disease (HCC) 332.0 G20 3. Essential hypertension 401.9 I10 4. Diastolic dysfunction 429.9 I51.89 5. BAKARI (obstructive sleep apnea) 327.23 G47.33 Patient Instructions Patient has been instructed to hold PD medication night before surgery- Not on any medication that is antiplatelet or anticoag May take cholesterol lower medication the night before and blood pressure medication with a sip morning of surgery as appropriate Patient is a good candidate for planned surgery- no further testing or change in medicinal regimen necessary She no risks aka the RCRI tool - AUTHOR: Arabella Beltre MD 14:34 08/26/2019 documented in this encounter Plan of Treatment Name Type Priority Associated Diagnoses Order Schedule AMBULATORY 12 LEAD EKG EKG Routine Preop examination Ordered: 08/25/2019 (GLOBAL) CBC WITH DIFFERENTIAL Lab Routine Preop examination Expected: 08/25/2019 (Approximate), Expires: 02/21/2020 COMPREHENSIVE METABOLIC Lab Routine Preop examination Expected: 08/25/2019 PANEL (Approximate), Expires: 02/21/2020 URINE DIP MANUAL (AMB POCT) POCT Routine Preop examination Ordered: 2019 Health Maintenance Due Date Last Done Comments [...] Type Problems Progress Blood Pressure Blood Pressure 120/66 No Alexsander, < 150/90 (08/26/2019 MD Arabella 1:44 PM EST) Note: This is an individualized [...] loss vs. 18 mo max Lifestyle 8 (08/26/2019 1:44 PM EST) No Arabella Beltre MD (lbs) >= 10 [...] is an individualized self-management goal for Solange Espinoza Avalos: Please take all prescribed medications as [...] of this encounter Implants Implanted Type Area Public Health Nurse Device Shelf Model / Identifier Expiration Serial / Lot Date Souris Gription Acetabular Shell 54mm Od Right: Hip DEPUY 12/04/2021 [id number] / Implanted: Qty: 1 on 12/25/2011 at [facility] / [id number] Souris Cancellous Bone Screw Right: Hip DEPUY 12/26/2019 1217-35-500 / Implanted: Qty: 1 on 12/25/2011 at [facility] / [id number] Austin Hole Eliminator Right: Hip DEPUY 12/25/2021 [id number] / Implanted: Qty: 1 on 12/25/2011 at [facility] / [id number] Souris Cancellous Bone Screw Right: Hip DEPUY 11/24/2021 1217-15-500 / Implanted: Qty: 1 on 12/25/2011 at [facility] / [id number] An[employer]omic Adaptors 2mm Long - [id number] Left: GAMEZ 12/14/2019 1331.15.272 / Implanted: Qty: 1 on 03/19/2018 by Caden Guevara MD at [facility] / [id number] Hybrid Small Baseplate Glenoid Left: GAMEZ 10/13/2022 1379.59.110 / Implanted: Qty: 1 on 03/19/2018 by Caden Guevara MD at [facility] / [id number] Bone Cement, 40gm Full Dose - [id number] Left: DEPUY 05/15/2019 [id number] / Implanted: Qty: 1 on 03/19/2018 by Caden Guevara MD at [facility] / [id number] Cementless Finned Stems 16mm - [id number] Left: METLAKATLA 02/12/2023 1304.15.160 / Implanted: Qty: 1 on 03/19/2018 by Caden Guevara MD at [facility] / [id number] Finned Humeral Body Anatomic - [id number] Left: METLAKATLA 02/12/2023 1350.15.110 / Implanted: Qty: 1 on 03/19/2018 by Caden Guevara MD at [facility] / [id number] Humeral Heads 46mm - [id number] Left: GAMEZ 12/13/2022 1322.09.460 / Implanted: Qty: 1 on 03/19/2018 by Caden Guevara MD at [facility] / [id number] documented as of this encounter Results Not on filedocumented in this encounter Visit Diagnoses Diagnosis Preop examination Preoperative examination, unspecified Parkinson's disease (HCC) Paralysis agitans Essential hypertension Unspecified essential hypertension Diastolic dysfunction Heart disease, unspecified BAKARI (obstructive sleep apnea) Obstructive sleep apnea (adult) (pediatric) documented in this encounter Guarantor Name Account Type Relation to Date of Phone Billing Patient Address Solange Avalos Personal/Family 1945 [address] (Home) [address] [phone] [place], [place] (Work) [address] documented as of this encounter Advance Directives Type Date Recorded 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
[2019-09-22 20:05] VITALS: BP 116/59
== END 2019-09-22 19:50 | disposition home or self-care (01) ==
LOC: ED 17:37
DX: S09.90XA Unspecified injury of head, initial encounter (principal); I25.10 Atherosclerotic heart disease of native coronary artery without angina pectoris; E78.00 Pure hypercholesterolemia, unspecified; I10 Essential (primary) hypertension; R47.81 Slurred speech; Z88.6 Allergy status to analgesic agent; Z88.0 Allergy status to penicillin; W19.XXXA Unspecified fall, initial encounter; Y92.9 Unspecified place or not applicable
CPT/HCPCS: 70450; 99282